=== PATIENT | female | born 1955 | race Caucasian/White ===

== ENCOUNTER → 2016-05-12 | Outpatient (CLI) | payer BC ==
[~2016-05-12] MED LIST: ATV5 PO; MULT-506 PO; NAPR1TAB9 PO; PRLSR20 PO
--- NOTE | 2016-05-12 15:22 | MAMMOGRAPHY REPORT ---
BILATERAL DIGITAL SCREENING MAMMOGRAM TOMOSYNTHESIS WITH CAD: 05/12/2016 CLINICAL HISTORY: Routine screening. Patient has no complaints. TECHNIQUE: Breast tomosynthesis in addition to standard 2D mammography was performed. Current study was also evaluated with a Computer Aided Detection (CAD) system. COMPARISON: Comparison is made to exams dated: 04/28/2015 mammogram, 04/16/2014 mammogram, 01/09/2013 mammogram, 01/03/2013 mammogram, 12/21/2010 mammogram, and 12/29/2011 mammogram - [facility]. BREAST COMPOSITION: There are scattered areas of fibroglandular density in both breasts. FINDINGS: No suspicious masses, calcifications, or areas of architectural distortion are noted in e ither breast. There has been no significant interval change compared to prior exams. IMPRESSION: ACR BI-RADS CATEGORY 1: NEGATIVE There is no mammographic evidence of malignancy. A 1 year screening mammogram is recommended. The p atient will receive written notification of the results. Approximately 10% of breast cancers are not detected with mammography. A negative mammographic repor t should not delay biopsy if a clinically suggestive mass is present. Venessa Ramírez M.D. ah/:05/12/2016 14:51:51 [employer] Past[employer] Cook: Nancy ALVAREZ(Yasir)(Christiana)([place]), [facility] letter sent: Normal 1/2 BI-RADS Code: ACR BI-RADS Category 1: Negative
== END | disposition home or self-care (01) ==
LOC: C.MAMM 12:13
PROVIDERS: ATTEND Obstetrics & Gynecology
DX: Z12.31 Encounter for screening mammogram for malignant neoplasm of breast (principal)

== ENCOUNTER → 2016-05-27 | Outpatient (CLI) | payer BC ==
[2016-05-27 13:27] LABS: BASO % 0.4 %; BASO ABS # 0.02 K/uL (0-0.2); COMPLETE YES; EOS % 2.8 %; HEMATOCRIT 39.5 % (37-47); LYMPH % 39.3 %; LYMPH ABS # 1.81 K/uL (1.2-3.4); MEAN CELL VOLUME 90.4 fL (80-100); MEAN CORPUSCULAR HEMOGLOBIN 30.4 pg (25-34); MEAN CORPUSCULAR HGB CONC 33.7 g/dl (32-36); MEAN PLATELET VOLUME 10.8 fL (7.4-10.4); MONO % 6.3 %; NEUT % 51.2 %; PLATELET COUNT 244 K/uL (130-400); RED BLOOD COUNT 4.37 M/uL (4.2-5.4)
== END | disposition home or self-care (01) ==
LOC: C.LABBC 12:11
PROVIDERS: ATTEND Internal Medicine Geriatric Medicine
DX: R05 Cough (principal)

== ENCOUNTER → 2016-08-02 | Outpatient (CLI) | payer BC ==
--- NOTE | 2016-08-02 11:10 | DIAGNOSTIC IMAGING REPORT ---
TWO VIEW CHEST CLINICAL HISTORY: Cough and dyspnea. FINDINGS: PA and lateral chest radiographs are compared to study dated 01/06/2016 and correlated with chest CT dated 07/28/2010. The cardiomediastinal silhouette is unremarkable. Chronic interstitial thickening is similar to previous. No airspace consolidation, pleural effusion, or pneumothorax is seen. The skeletal structures are osteopenic. The bony thorax appears intact. Fusion hardware is noted in the lower cervical spine. IMPRESSION: No active disease in the chest. Electronically signed by: Kayden Olson M.D. 08/02/2016 11:09 AM Dictated Date/Time: 08/02/2016 11:08 AM
== END | disposition home or self-care (01) ==
LOC: C.RADBC 10:36
PROVIDERS: ATTEND Physician Assistant
DX: J45.901 Unspecified asthma with (acute) exacerbation (principal)

== ENCOUNTER → 2016-08-22 | Outpatient (CLI) | payer BC ==
[2016-08-22 12:42] LABS: BASO % 0.7 %; BASO ABS # 0.03 K/uL (0-0.2); COMPLETE YES; EOS % 2.4 %; HEMATOCRIT 41.3 % (37-47); IG% 0.2 %; LYMPH % 37.1 %; LYMPH ABS # 1.56 K/uL (1.2-3.4); MEAN CELL VOLUME 92.4 fL (80-100); MEAN CORPUSCULAR HEMOGLOBIN 30.6 pg (25-34); MEAN CORPUSCULAR HGB CONC 33.2 g/dl (32-36); MEAN PLATELET VOLUME 10.9 fL (7.4-10.4); MONO % 7.9 %; NEUT % 51.7 %; PLATELET COUNT 218 K/uL (130-400); RED BLOOD COUNT 4.47 M/uL (4.2-5.4)
[2016-08-22 13:24] LABS: ALT/SGPT 30 U/L (12-78); AST/SGOT 22 U/L (15-37); BLOOD UREA NITROGEN 21 mg/dl (7-18); BUN/CREATININE RATIO 29.7 (10-20); CALCIUM 9.2 mg/dl (8.5-10.1); CARBON DIOXIDE 28 mmol/L (21-32); CHLORIDE 107 mmol/L (98-107); CHOLESTEROL 214 mg/dl (0-200); CREATININE 0.69 mg/dl (0.60-1.20); GLUCOSE 82 mg/dl (70-99); POTASSIUM 3.7 mmol/L (3.5-5.1); SODIUM 143 mmol/L (136-145); TRIGLYCERIDES 201 mg/dl (0-150); VERY LOW DENSITY LIPOPROT CALC 40 mg/dl
[2016-08-22 13:28] LABS: CHOLESTEROL/HDL RATIO 4.8; HDL CHOLESTEROL 45 mg/dl; LDL CHOLESTEROL CALCULATED 129 mg/dl
== END | disposition home or self-care (01) ==
LOC: C.LAB1850 11:30
PROVIDERS: ATTEND Internal Medicine
DX: J45.909 Unspecified asthma, uncomplicated (principal); R53.83 Other fatigue; M81.0 Age-related osteoporosis without current pathological fracture; Z00.00 Encounter for general adult medical examination without abnormal findings

== ENCOUNTER → 2016-12-12 | Outpatient (CLI) | payer BC ==
[2016-12-12 13:25] LABS: HEMATOCRIT 39.9 % (37-47); MEAN CELL VOLUME 91.7 fL (80-100); MEAN CORPUSCULAR HEMOGLOBIN 30.3 pg (25-34); MEAN CORPUSCULAR HGB CONC 33.1 g/dl (32-36); MEAN PLATELET VOLUME 11.4 fL (7.4-10.4); PLATELET COUNT 213 K/uL (130-400); RED BLOOD COUNT 4.35 M/uL (4.2-5.4); WHITE BLOOD COUNT 4.57 K/uL (4.8-10.8)
[2016-12-12 14:02] LABS: CHOLESTEROL/HDL RATIO 4.5; THYROID STIMULATING HORMONE 2.99 uIu/ml (0.300-4.500)
== END | disposition home or self-care (01) ==
LOC: C.LABBC 10:12
PROVIDERS: ATTEND Internal Medicine
DX: E78.5 Hyperlipidemia, unspecified (principal); D72.819 Decreased white blood cell count, unspecified; E55.9 Vitamin D deficiency, unspecified

== ENCOUNTER → 2017-02-20 | Outpatient (CLI) | payer BC | END | disposition home or self-care (01) | LOC: C.PAPS 18:16 | PROVIDERS: ATTEND Obstetrics & Gynecology | DX: Z01.419 Encounter for gynecological examination (general) (routine) without abnormal findings (principal); N95.2 Postmenopausal atrophic vaginitis ==

== ENCOUNTER → 2017-06-08 | Outpatient (CLI) | payer BC ==
--- NOTE | 2017-06-08 15:09 | MAMMOGRAPHY REPORT ---
BILATERAL DIGITAL SCREENING MAMMOGRAM TOMOSYNTHESIS WITH CAD: 06/08/2017 CLINICAL HISTORY: Routine screening. Patient has no complaints. TECHNIQUE: Breast tomosynthesis in addition to standard 2D mammography was performed. Current study was also evaluated with a Computer Aided Detection (CAD) system. COMPARISON: Comparison is made to exams dated: 05/12/2016 mammogram, 04/28/2015 mammogram, 04/16/2014 ma mmogram, 01/09/2013 mammogram, 01/03/2013 mammogram, and 12/29/2011 mammogram - [facility]. BREAST COMPOSITION: There are scattered areas of fibroglandular density in both breasts. FINDINGS: No suspicious masses, calcifications, or areas of architectural distortion are noted in ei ther breast. There has been no significant interval change compared to prior exams. IMPRESSION: ACR BI-RADS CATEGORY 1: NEGATIVE There is no mammographic evidence of malignancy. A 1 year screening mammogram is recommended. The pa tient will receive written notification of the results. Approximately 10% of breast cancers are not detected with mammography. A negative mammographic report should not delay biopsy if a clinically suggestive mass is present. Venessa Ramírez M.D. /:06/08/2017 14:11:18 [employer] Driver: Randee ALVAREZ(Yasir)(Christiana), [facility] letter sent: Normal 1/2 BI-RADS Code: ACR BI-RADS Category 1: Negative
== END | disposition home or self-care (01) ==
LOC: C.MAMM 13:32
PROVIDERS: ATTEND Obstetrics & Gynecology
DX: Z12.31 Encounter for screening mammogram for malignant neoplasm of breast (principal)

== ENCOUNTER → 2017-08-01 | Outpatient (CLI) | payer BC | END | disposition home or self-care (01) | LOC: C.LABBC 10:16 | PROVIDERS: ATTEND Obstetrics & Gynecology | DX: R30.0 Dysuria (principal) ==

== ENCOUNTER → 2017-10-16 | Outpatient (CLI) | payer BC | END | disposition home or self-care (01) | LOC: C.LABSPEC 16:47 | PROVIDERS: ATTEND Obstetrics & Gynecology | DX: N76.2 Acute vulvitis (principal) ==

== ENCOUNTER → 2017-10-28 | Outpatient (CLI) | payer BC ==
--- NOTE | 2017-10-28 10:40 | DIAGNOSTIC IMAGING REPORT ---
THORACIC SPINE 3 VIEWS CLINICAL HISTORY: Thoracic back pain. FINDINGS: AP, lateral, and swimmer's views of the thoracic spine are correlated with lateral chest x-ray dated 08/02/2016. The skeletal structures are osteopenic. There is no radiographic evidence of fracture or malalignment involving the thoracic spine. Small anterior osteophytes are seen throughout. Hyperkyphosis is observed. The transverse processes and pedicles are grossly intact as seen on the frontal view. Mild multilevel degenerative disc space narrowing is noted. Fusion hardware is seen in the lower cervical spine. The lung parenchyma is clear as visualized. IMPRESSION: 1. There is no acute bony abnormality seen involving the thoracic spine. 2. Osteopenia and mild degenerative change as above. Electronically signed by: Kayden Olson M.D. 10/28/2017 10:38 AM Dictated Date/Time: 10/28/2017 10:37 AM
== END | disposition home or self-care (01) ==
LOC: C.RAD1850 10:16
PROVIDERS: ATTEND Family Medicine
DX: M54.6 Pain in thoracic spine (principal); M85.88 Other specified disorders of bone density and structure, other site

== ENCOUNTER 2017-11-06 16:17 | Emergency (ER) | payer BC ==
[~2017-11-06] VITALS: Ht 154.9 cm; Wt 75.5 kg
[2017-11-06 16:26] VITALS: Ht 154.9 cm; Wt 75.5 kg
[2017-11-06] MEDS ORDERED: LIDODERM (LIDOCAINE) PATCH 5% TD STA (17:04)
[2017-11-06] MEDS ORDERED: NRN/100 PO (17:26)
[2017-11-06] MEDS ORDERED: LIDO1PAD2 TD (17:26)
[2017-11-06] MEDS ORDERED: OXYC-57 PO (17:26)
--- NOTE | 2017-11-06 17:28 | EMERGENCY ROOM VISIT NOTE ---
ED Visit Note First contact with patient: 16:46 CHIEF COMPLAINT: Thoracic back pain HISTORY OF PRESENT ILLNESS: This 62-year-old female patient presents to the emergency department, ambulatory, complaining of pain in the mid back which began 2 months ago. The pain was gradual in onset, is now constant and worse with movement. The patient states the pain has been consistent for the past 2 months. It occasionally gets better or worse throughout the day, however there has been no injury and no change recently. The patient recently saw her primary care provider who started her on prednisone. She was taking 40 mg of prednisone for 5 days without improvement in her symptoms. She has seen Dr. Rosales, and states she did have fusion of C6/C7. She has not seen Dr. Rosales recently, but states she was messaging with him earlier today. He advised her that if her pain was significantly worse that she should go to the emergency department to be evaluated. The patient states she feels that she needs an MRI and this has been mentioned by her primary care provider as well to further evaluate her pain. This has not been ordered outpatient. She thought that coming to the emergency department with speed up the process for the MRI. The patient notes the pain as sharp and a 9/10. The patient denies any loss of control of their bowel or bladder functions. There has been no extremity numbness or weakness, and no change in sensation. No nausea or vomiting or abdominal pain. No chest pain or shortness of breath. No recent fever or illness. No dysuria or increased urinary frequency. REVIEW OF SYSTEMS: A 10 system review of systems was performed with positives and pertinent negatives listed in the history of present illness. All other systems were reviewed and are negative. ALLERGIES: Sulfa, Benadryl, monosodium glutamate MEDICATIONS: Omeprazole, lorazepam, Aleve, multivitamin PMH: Back pain, GERD SOCIAL HISTORY: The patient lives locally with family. She denies drug, alcohol, tobacco use. PHYSICAL EXAM: VITALS: Vitals are noted on the nurse's note and reviewed by myself. Vital signs stable. GENERAL: This is a 62-year-old white female, in no acute distress, nondiaphoretic, well-developed well-nourished. SKIN: The skin was without rashes, erythema, edema, or bruising. Capillary refill less than 2 seconds. NECK: Supple without nuchal rigidity. No cervical spine tenderness. No paraspinous muscle tenderness. HEART: Regular rate and rhythm without murmurs gallops or rubs. LUNGS: Clear to auscultation bilaterally without wheezes, rales or rhonchi. ABDOMEN: Positive bowel sounds x 4. Normal tympanic percussion. Soft, nontender, without masses or organomegaly. Wheeler sign negative. MUSCULOSKELETAL: No chest wall tenderness to palpation. No muscle atrophy, erythema, or edema noted of the back. There is no tenderness over the lumbar spinous processes. There is no tenderness over the paraspinous muscles bilaterally. There is tenderness over the thoracic spine and paraspinous muscles. There are muscle spasms present. The patient is slow to move around with maximum tenderness with sitting hunched over. Negative straight leg raise test. NEURO: Patient was alert and oriented to person place and time. Normal sensation to light and sharp touch. Deep tendon reflexes 2+ in the lower extremities. Dorsalis pedis pulse 2+ bilaterally. Strength 5/5 and equal in the bilateral lower extremities. EMERGENCY DEPARTMENT COURSE: The patient was seen and evaluated as above. Previous medical records reviewed including recent thoracic spine x-ray performed within the past month. She is not exhibiting any emergent symptoms to warrant an MRI from the ER, as her pain has been stable and consistent for the past 2 months. There has been no new injury. There is been no fever or signs of abscess. The patient is not experiencing any numbness, tingling, or change in sensation. She has full mobility. I did recommend that the patient follow-up with her primary care provider as well as Dr. Rosales for further evaluation and possible outpatient MRI. I did offer to perform the test here in the emergency department, but did discuss with the patient that without emergent symptoms, it is possible that insurance would not cover the test. The patient states she does not feel that she needs to have the test performed here in the emergency department, and would like to follow-up with her primary care provider to schedule it outpatient. I do feel that this is reasonable, again given no obvious emergent symptoms at this time. I gave the patient very strict return precautions. She was given a Lidoderm patch here in the emergency department. I discussed with her starting gabapentin and a short course of pain medication until she is able to follow-up with her PCP. She was agreeable to trying these medications. All questions answered to patient's satisfaction prior to discharge. Discharge instructions reviewed, the patient was discharged home in good condition. PDMP consulted and no suspicious findings noted. I attest that I have personally reviewed the patient's current medication list. Blood Pressure Screening: Patient was found to have a slightly elevated blood pressure due to circumstances. I do not believe that the patient requires hypertension monitoring. Etiologies such as lumbago, chronic thoracic back pain, sciatica, cauda equina, epidural abscess, osteomyelitis, fracture, aortic disease, metastatic disease, infection, renal colic, gastrointestinal, PE, cardiac etiology, pneumonia, as well as others were entertained. DIAGNOSIS: Chronic thoracic back pain The chart was completed utilizing [employer] voice recognition software. Grammatical errors, random word insertions, pronoun errors, and incomplete sentences are an occasional consequence of this system due to software limitations, ambient noise, and hardware issues. Any formal questions or concerns about the content, text, or information contained within the body of this dictation should be directly addressed to the provider for clarification. Current/Historical Medications Scheduled Gabapentin (Neurontin), 1 CAP PO TID Lorazepam (Ativan *), 0.5-1 MG PO HS PRN Multivitamin (Multivitamin), 1 TAB PO DAILY Naproxen (Aleve), 220 MG PO DAILY Omeprazole (Prilosec), 20 MG PO DAILY Scheduled PRN Lidocaine (Lidocaine), 1 PATCH TD QD PRN for Pain Oxycodone/Acetaminophen 5MG/325MG (Percocet 5MG/325MG), 1 TAB PO Q4H PRN for Pain Allergies Coded Allergies: Sulfa Drugs (Verified Allergy, Intermediate, 04/24/09) Cat Dander (Unverified Allergy, Mild, ASTHMA, 09/02/08) Diphenhydramine (Unverified Allergy, Mild, RASH, 04/24/09) Monosodium Glutamate (Unverified Allergy, Mild, RAPID HEART RATE, 04/24/09) Vital Signs Date Time Temp Pulse Resp B/P (MAP) Pulse Ox O2 Delivery O2 Flow Rate FiO2 11/06/17 17:32 37.1 85 21 158/99 96 11/06/17 16:26 37.1 82 18 164/101 97 Room Air Medications Administered Medications (Trade) Dose Ordered Sig/Jyothi Route Start Time Stop Time Status Last Admin Dose Admin Lidocaine (Lidoderm Patch 5%) 1 patch NOW STAT TD 11/06/17 17:04 11/06/17 17:08 DC 11/06/17 17:23 1 PATCH Departure Information Impression Primary Impression: Chronic thoracic back pain Dispostion Home / Self-Care Condition GOOD Prescriptions Oxycodone/Acetaminophen 5MG/325MG (PERCOCET 5MG/325MG) Tab 1 TAB PO Q4H Y for Pain, #6 TAB For Initial Treatment Prov: Naz Angulo PA-C 11/06/17 Gabapentin (Neurontin) 100 Mg Cap 1 CAP PO TID, #30 CAP Prov: Naz Angulo PA-C 11/06/17 Lidocaine (LIDOCAINE) 5 % Pad 1 PATCH TD QD Y for Pain, #30 PATCH Prov: Naz Angulo PA-C 11/06/17 Referrals Pro,Codey Bland M.D. (PCP) Patient Instructions ED Neck Back Pain [facility], [facility] Additional Instructions You have been treated in the Emergency Department for Back Pain. You have been prescribed Percocet to be used for pain control. This is a narcotic medication. You cannot drive or consume alcohol while on this medicine. This medicine should only be used for pain that cannot be controlled with lidp-ryw-echbatu pain medicines. Use the muscle relaxers you have at home to help with pain and spasms. Use the Lidoderm patches as prescribed to help with pain. No more than 1 patch in 24 hours. Patch must be removed after 12 hours. New patch may be applied 12 hours later. Use gabapentin up to 300 mg 3 times per day to help with nerve pain. Do recommend follow-up with your primary care provider and spine surgeon regarding ongoing use of this medication. For pain control, you can use the following liuj-aox-dzohrku medicines (if >12 yo): Ibuprofen(Motrin, Advil) may be used for fever or pain. Use 600mg every six hours as needed. Take with food. Avoid using more than 2400mg in a 24 hour period. Do not use 2400mg per day for more than three consecutive days without physician direction. Prolonged inappropriate use can lead to stomach upset or ulcers. (AND/OR) Acetaminophen(Tylenol) may be used for fever or pain. Use 1000mg every six hours as needed. Avoid using more than 3000mg in a 24 hour period. If this is an acute injury, ice can be applied to the area of pain for the first 3 days to help decrease pain and inflammation. After the first 3 days, a heating pad can be used over the area for continued soothing relief. You should schedule a follow-up appointment in 1-2 days with your Primary Care Provider/spine surgeon for further evaluation and treatment of your back pain. Return to the Emergency Department if your current symptoms worsen despite treatment course outlined above, or if you develop any of the following symptoms : intractable pain despite aforementioned treatment course, loss of control of your bowel or bladder, numbness or tingling in your groin or extremities, falling due to weakness, or development of a fever. Problem Qualifiers Primary Impression: Chronic thoracic back pain Back pain laterality: midline Qualified Codes: M54.6 - Pain in thoracic spine; G89.29 - Other chronic pain
[2017-11-06 17:32] VITALS: BP 158/99; PULSE 85; TEMP 37.1; O2SAT 96
== END 2017-11-06 17:33 | disposition home or self-care (01) ==
LOC: C.EDB 16:18 → C.EDD 17:33
DX: M54.6 Pain in thoracic spine (principal); G89.29 Other chronic pain; Z98.1 Arthrodesis status; K21.9 Gastro-esophageal reflux disease without esophagitis; Z79.899 Other long term (current) drug therapy; Z88.2 Allergy status to sulfonamides; Z88.8 Allergy status to other drugs, medicaments and biological substances

== ENCOUNTER → 2017-11-10 | Outpatient (CLI) | payer BC ==
[~2017-11-10] MED LIST changes: +LIDO1PAD2 TD; +NRN/100 PO; +OXYC-57 PO
--- NOTE | 2017-11-10 16:20 | DIAGNOSTIC IMAGING REPORT ---
MRI THORACIC SPINE WITHOUT CLINICAL HISTORY: M54.6 persistent midthoracic back pain PRIOR STUDIES: Conventional radiographic study dated 10/28/2017 TECHNIQUE: MR scanning of the thoracic spine was performed using multiple pulse sequences. No gadolinium was administered. FINDINGS: There are no suspicious areas of marrow replacement. No spinal cord lesions are visualized in this noncontrast study. No disc herniations are visualized. There is no spinal stenosis. No paraspinal masses are visualized. There are mild degenerative changes. Incidental note is made of bilateral renal cysts. IMPRESSION: No significant abnormality is seen in the MR scan of the thoracic spine. Electronically signed by: Beka Dumont M.D. 11/10/2017 4:18 PM Dictated Date/Time: 11/10/2017 4:14 PM
== END | disposition home or self-care (01) ==
LOC: C.MRIBC 15:17
PROVIDERS: ATTEND Internal Medicine
DX: M54.6 Pain in thoracic spine (principal)

== ENCOUNTER 2019-11-09 12:18 | Inpatient (IN) ==
[2019-11-09 13:03] LABS: Basophils # (auto) 0.02 K/uL (0-0.2); Basophils % (auto) 0.3 %; Eosinophils # (auto) 0.02 K/uL (0-0.5); Eosinophils % (auto) 0.3 %; Hematocrit (blood only) 44.3 % (37-47); Hemoglobin 14.6 g/dL (12.0-16.0); Lymphocytes # (auto) 1.57 K/uL (1.2-3.4); Lymphocytes % (auto) 22.5 %; Mean Corpuscular Hemoglobin 30.7 pg (25-34); Mean Corpuscular Volume 93.1 fL (80-100); Mean Platelet Volume 10.3 fL (7.4-10.4); Monocytes # (auto) 0.28 K/uL (0.11-0.59); Neutrophils # (auto) 5.08 K/uL (1.4-6.5); Neutrophils % (auto) 72.9 %; Platelet Count 273 K/uL (130-400); RDW Coefficient of Variation 12.3 % (11.5-14.5); RDW Standard Deviation 42.1 fL (36.4-46.3); Red Blood Count 4.76 M/uL (4.2-5.4); White Blood Count 6.97 K/uL (4.8-10.8)
[2019-11-09 13:09] LABS: Appearance Urine Clear (Clear); Bilirubin Urine Negative (Negative); Blood Urine Negative (Negative); Color Urine Yellow; Glucose Urine UA Negative (Negative); Ketones Urine Negative (Negative); Leukocyte Esterase Urine Negative (Negative); Nitrite Urine Negative (Negative); Protein Urine Negative (Negative); Specific Gravity Urine 1.019 (1.000-1.030); Urobilinogen Urine Negative (Negative); pH Urine 6.5 (4.5-7.5)
[2019-11-09 13:23] LABS: Alanine Aminotransferase 33 U/L (12-78); Albumin Level 4.4 gm/dl (3.4-5.0); Aspartate Aminotransferase 22 U/L (15-37); BUN Creatinine Ratio 28.3 (10-20); Blood Urea Nitrogen 21 mg/dl (7-18); Calcium 9.5 mg/dl (8.5-10.1); Carbon Dioxide 28 mmol/L (21-32); Chloride 105 mmol/L (98-107); Est GFR (African American) 96.9; Est GFR (Non-African American) 83.6; Glucose 111 mg/dl (70-99); Lipase 111 U/L (73-393); Potassium 3.7 mmol/L (3.5-5.1); Sodium 139 mmol/L (136-145)
[2019-11-09 13:26] LABS: Alkaline Phosphatase 120 U/L (45-117); Bilirubin,Total 0.3 mg/dl (0.2-1); Globulin 4.4 gm/dl (2.5-4.0); Total Protein 8.8 gm/dl (6.4-8.2)
[2019-11-09] MEDS ORDERED: ONDANSETRON INJ 2 MG/ML 2 ML VIAL IV STA ×2 (13:52→15:46)
[2019-11-09] MEDS ORDERED: HYDROmorphone INJ 0.5 MG/0.5 ML SYR IV PRN ×2 (13:52→19:42)
[2019-11-09] MEDS ORDERED: FAMOTIDINE 20MG IV PUSH 20 MG/5 ML SYR IV STA (13:53)
--- NOTE | 2019-11-09 13:59 | Emergency Department Note ---
Impression & Plan Acute upper abdominal pain, SBO (small bowel obstruction) ED Provider Note INFORMANT: Patient ED PROVIDER(S): Anthony Sandoval MD CHIEF COMPLAINT: Abdominal pain PLAN: Disposition: Admitted Condition: Good MEDICAL DECISION MAKING: Patient presented with acute up upper abdominal pain. She was treated with Dilaudid and Zofran. She also required Phenergan. She had CT ridging performed. Blood work was unremarkable. CT imaging was consistent with a small bowel obstruction. Patient was hydrated. NG tube was ordered. Consult with general surgery made. The patient was evaluated by Dr. Silva in the emergency department. He asked for her to be admitted to internal medicine. He held off on the NG tube placement after discussion with the patient. We did consult with Dr. Mota of the hospitalist service. Dr. Silva and Dr. Mota did discuss the case. The patient was admitted for further management. Triage Nursing notes reviewed and agree them. Prior medical records reviewed CT imaging in June of this year without evidence of bowel obstruction. Vital Signs: reviewed and remarkable for no significant abnormalities Differential diagnosis: PUD, pancreatitis, biliary pathology, Appendicitis, ovarian cyst, ovarian torsion, ectopic , TOA, PID, infections, diverticulitis, UTI, obstruction, mesenteric ischemia, aortic pathology, inflammatory bowel disease, renal colic, hernia, volvulus, constipation, as well as other pathologies. Diagnostics interpreted by me: ECG: Rate: 80 Rhythm:Normal sinus [place]:Normal QRS:Normal ST segements:No elevation or depression. Nonspecific ST. Other:No PACs or PVCs Cardiac Monitoring: Cardiac monitoring ordered by me: The patient was placed on continuous cardiac monitoring and observed. It revealed a normal sinus rhythm at 82 beats per minute without ectopy or evidence of dysrhythmia. Imaging studies: CT imaging of the abdomen pelvis is consistent with high-grade bowel obstruction. Possible closed-loop obstruction pattern. Consultation(s): General surgery Internal medicine HPI: The patient is a 64 year old female who presents to the Emergency Room with complaints of epigastric, intense sharp pains. This started this morning and is persistent. The patient also notes the following associated symptoms, chills. The patient has tried gaviscon unsuccessfully for relieving factors. Current pain is rated as 10/10. Pt denies LOC, headache, fevers, , diaphoresis, visual changes, neck pain, chest pain, breathing difficulties, nausea, vomiting, back pain, melena, hematochezia, urinary symptoms, numbness, weakness, lymphadenopathy, rash, or other complaints. ROS: See above HPI for pertinent positives & negatives. A total of 10 systems reviewed and were otherwise negative. PAST MEDICAL HISTORY:See Below pyeloplasty 9 weeks ago PAST SURGICAL HISTORY:See Below FAMILY HISTORY:See Below SOCIAL HISTORY:See Below HOME MEDICATIONS:See Below ALLERGIES:See Below VITALS:See Below PHYSICAL EXAMINATION: GENERAL: Awake, alert, uncomfortable appearing, in no distress HENT: Normocephalic, atraumatic. Oropharynx unremarkable. EYES: Normal conjunctiva. Sclera non-icteric. NECK: Inspection normal. Non-tender. Supple. No nuchal rigidity. FROM. No masses. RESPIRATORY: Clear to auscultation. No wheezes. No rales. Normal respiratory effort. CARDIAC: Normal rate. Normal rhythm. No murmurs. No rubs. Extremities warm and well perfused. Pulses equal. No JVD. GI: Soft, non-distended. Epigastric tenderness to palpation. No rebound or guarding. No masses. RECTAL: Deferred. MUSCULOSKELETAL: Atraumatic. Chest examination reveals no tenderness. The back is symmetrical on inspection without obvious abnormality. There is no CVA tenderness to palpation. No joint edema. LOWER EXTREMITIES: Calves are equal size bilaterally and non-tender. No edema. No discoloration. NEURO: Normal sensorium. No sensory or motor deficits noted. SKIN: No rash or jaundice noted. ED COURSE: Critical Care: None Anthony Sandoval MD Past Med/Surg History Medical History (Updated 11/09/19 @ 18:25 by Anthony Sandoval MD) Actinic keratosis Angioma of skin Arthropod bite Chest tightness Eustachian tube dysfunction H/O vulvovaginitis History of basal cell carcinoma Seborrheic keratosis Skin tag Surgical History H/O Spinal surgery C6-C7 SPINAL FUSION - HAS ALMOST COMPLETE ROM OF NECK H/O: section X2 History of anesthesia reaction HISTORY OF ASPIRATION WITH COLONOSCOPY, BUT ASSUMED IT WAS DUE TO THE PREP. NO ISSUES WITH THE LAST COLONOSCOPY, THEY SWITCHED THE PREP. DONE AT DR. SEWELL'S OFFICE. History of esophagogastroduodenoscopy (EGD) History of total abdominal hysterectomy PARTIAL S/P colonoscopy LAST 2015 S/P Mohs surgery for basal cell carcinoma FOREHEAD Family History Mother Breast cancer Colon cancer Hypertension Brother Prostate cancer Diabetes Colorectal cancer Sister Breast cancer Grandmother (Maternal) Breast cancer Father Myocardial infarction Uncle Diabetes Denies family history of Ovarian cancer Social History Smoking Status: Never smoker Second Hand Exposure: No; Hx Alcohol Use: Yes Hx Substance Use: No Preferred Language: Montenegrin Communication Ability: Effective 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 Required: No Beliefs That Will Affect Care: None marital status: Current Living Situation: Spouse current occupational status: employed 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 Feels Safe at Home: Yes Childhood Exposure to Second-Hand Smoke: Yes Dental Care, Regularly: Yes Physical Activity Frequency: 3-4 Times per Week Seatbelt Use: always Allergies Allergies Allergy/AdvReac Type Severity Reaction Status Date / Time Sulfa (Sulfonamide Allergy Intermediate Unknown Verified 09/23/19 09:09 Antibiotics) cat dander Allergy Mild ASTHMA Verified 09/23/19 09:09 diphenhydramine Allergy Mild RASH Verified 09/23/19 09:09 monosodium glutamate Allergy Mild RAPID Verified 09/23/19 09:09 HEART RATE amoxicillin [From Augmentin] Allergy Unknown Verified 09/23/19 09:09 ciprofloxacin [From Cipro] Allergy Unknown Verified 09/23/19 09:09 clavulanic acid Allergy Unknown Verified 09/23/19 09:09 [From Augmentin] doxycycline Allergy Unknown Verified 09/23/19 09:09 Home Meds Home Medications Medication Instructions Recorded Confirmed multivitamin 1 cap PO QAM 10/04/18 11/09/19 cetirizine 10 mg tablet 10 mg PO DAILY PRN tab 02/01/19 11/09/19 glucosamine-chondroitin 500 mg-400 1 cap PO BID cap 02/01/19 11/09/19 mg capsule lorazepam 1 mg tablet 0.5 mg PO HS tab 02/23/19 11/09/19 calcium carbonate 600 mg (1,500 1 tab PO DAILY 08/30/19 11/09/19 mg)-vitamin D3 400 unit tablet clobetasol 1 appln TOPICAL DIRECTED 11/09/19 11/09/19 Previous Rx's Medication Instructions Recorded promethazine 25 mg tablet 25 mg PO TID PRN #20 tab 07/01/19 levalbuterol tartrate 45 2 puffs INH Q4H PRN #15 gm 08/19/19 mcg/actuation aerosol inhaler mometasone-formoterol HFA 100 2 puffs INH BID #13 gm 08/19/19 mcg-5 mcg/actuation aerosol inhaler oxycodone-acetaminophen 5 mg-325 1 tab PO Q6H #10 tab 09/10/19 mg tablet nitrofurantoin macrocrystal 100 mg 100 mg PO BID 3 Days #6 cap 09/23/19 capsule Results & Data (ED) Vital Signs Vital Signs - 24 hr 11/09/19 12:33 11/09/19 13:02 11/09/19 13:05 Temperature 36.8 C Temperature Source Oral Pulse Rate 88 87 95 H Pulse Rate from SpO2 Sensor Respiratory Rate 17 Respiratory Effort / Characteristics Non-Labored Spontaneous Respiratory Depth Normal Respiratory Pattern Regular Blood Pressure 145/84 H Blood Pressure Mean 104 Pulse Oximetry 99 98 Oxygen Delivery Method Room Air Room Air Sepsis Recent Fever Within 48 Hours No Sepsis New/Unexplained Change in Mental Status No Sepsis Action Taken by Nursing No Action Required 11/09/19 13:07 11/09/19 13:30 11/09/19 13:37 Temperature Temperature Source Pulse Rate 86 76 Pulse Rate from SpO2 Sensor 88 78 Respiratory Rate 14 19 Respiratory Effort / Characteristics Respiratory Depth Respiratory Pattern Blood Pressure 167/105 H 175/69 H Blood Pressure Mean 124 115 Pulse Oximetry 98 98 Oxygen Delivery Method Sepsis Recent Fever Within 48 Hours Sepsis New/Unexplained Change in Mental Status Sepsis Action Taken by Nursing 11/09/19 14:14 11/09/19 14:15 11/09/19 16:10 Temperature Temperature Source Pulse Rate 88 89 Pulse Rate from SpO2 Sensor 82 87 Respiratory Rate 18 14 Respiratory Effort / Characteristics Respiratory Depth Respiratory Pattern Blood Pressure 161/86 H 161/86 H 160/90 H Blood Pressure Mean 119 111 113 Pulse Oximetry 98 98 96 Oxygen Delivery Method Room Air Sepsis Recent Fever Within 48 Hours Sepsis New/Unexplained Change in Mental Status Sepsis Action Taken by Nursing 11/09/19 17:56 Temperature Temperature Source Pulse Rate 85 Pulse Rate from SpO2 Sensor Respiratory Rate 18 Respiratory Effort / Characteristics Respiratory Depth Respiratory Pattern Blood Pressure 174/93 H Blood Pressure Mean 120 Pulse Oximetry 95 Oxygen Delivery Method Room Air Sepsis Recent Fever Within 48 Hours Sepsis New/Unexplained Change in Mental Status Sepsis Action Taken by Nursing Laboratory Data Result diagrams: 11/09/19 12:53 11/09/19 12:52 Lab Results 11/09/19 11/09/19 11/09/19 Range/Units 12:52 12:53 12:53 WBC 6.97 (4.8-10.8) K/uL RBC 4.76 (4.2-5.4) M/uL Hgb 14.6 (12.0-16.0) g/dL Hct 44.3 (37-47) % MCV 93.1 (80-100) fL MCH 30.7 (25-34) pg MCHC 33.0 (32-36) g/dL RDW Std Deviation 42.1 (36.4-46.3) fL RDW Coeff of Jana 12.3 (11.5-14.5) % Plt Count 273 (130-400) K/uL MPV 10.3 (7.4-10.4) fL Immature Gran % (Auto) 0.0 % Neut % (Auto) 72.9 % Lymph % (Auto) 22.5 % [place] % (Auto) 4.0 % Eos % (Auto) 0.3 % Baso % (Auto) 0.3 % Neut # (Auto) 5.08 (1.4-6.5) K/uL Lymph # (Auto) 1.57 (1.2-3.4) K/uL [place] # (Auto) 0.28 (0.11-0.59) K/uL Eos # (Auto) 0.02 (0-0.5) K/uL Baso # (Auto) 0.02 (0-0.2) K/uL Immature Gran # (Auto) 0.00 (0.00-0.02) K/uL Sodium 139 (136-145) mmol/L Potassium 3.7 (3.5-5.1) mmol/L Chloride 105 (98-107) mmol/L Carbon Dioxide 28 (21-32) mmol/L Anion Gap 6.0 (3-11) BUN 21 H (7-18) mg/dl Creatinine 0.75 (0.6-1.2) mg/dl Est Cr Clr Drug Dosing Not Reportable Est GFR ( Amer) 96.9 Est GFR (Non-Af Amer) 83.6 BUN/Creatinine Ratio 28.3 H (10-20) Glucose 111 H (70-99) mg/dl Lactate (0.4-2.0) mmol/L Calcium 9.5 (8.5-10.1) mg/dl Total Bilirubin 0.3 (0.2-1) mg/dl AST 22 (15-37) U/L ALT 33 (12-78) U/L Alkaline Phosphatase 120 H (45-117) U/L Total Protein 8.8 H (6.4-8.2) gm/dl Albumin 4.4 (3.4-5.0) gm/dl Globulin 4.4 H (2.5-4.0) gm/dl Albumin/Globulin Ratio 1.0 (0.9-2) Lipase 111 (73-393) U/L Urine Color Yellow Urine Appearance Clear (Clear) Urine pH 6.5 (4.5-7.5) Ur Specific Media 1.019 (1.000-1.030) Urine Protein Negative (Negative) Urine Glucose (UA) Negative (Negative) Urine Ketones Negative (Negative) Urine Blood Negative (Negative) Urine Nitrite Negative (Negative) Urine Bilirubin Negative (Negative) Urine Urobilinogen Negative (Negative) Ur Leukocyte Esterase Negative (Negative) 11/09/19 Range/Units 16:04 WBC (4.8-10.8) K/uL RBC (4.2-5.4) M/uL Hgb (12.0-16.0) g/dL Hct (37-47) % MCV (80-100) fL MCH (25-34) pg MCHC (32-36) g/dL RDW Std Deviation (36.4-46.3) fL RDW Coeff of Jana (11.5-14.5) % Plt Count (130-400) K/uL MPV (7.4-10.4) fL Immature Gran % (Auto) % Neut % (Auto) % Lymph % (Auto) % [place] % (Auto) % Eos % (Auto) % Baso % (Auto) % Neut # (Auto) (1.4-6.5) K/uL Lymph # (Auto) (1.2-3.4) K/uL [place] # (Auto) (0.11-0.59) K/uL Eos # (Auto) (0-0.5) K/uL Baso # (Auto) (0-0.2) K/uL Immature Gran # (Auto) (0.00-0.02) K/uL Sodium (136-145) mmol/L Potassium (3.5-5.1) mmol/L Chloride (98-107) mmol/L Carbon Dioxide (21-32) mmol/L Anion Gap (3-11) BUN (7-18) mg/dl Creatinine (0.6-1.2) mg/dl Est Cr Clr Drug Dosing Est GFR ( Amer) Est GFR (Non-Af Amer) BUN/Creatinine Ratio (10-20) Glucose (70-99) mg/dl Lactate 0.6 (0.4-2.0) mmol/L Calcium (8.5-10.1) mg/dl Total Bilirubin (0.2-1) mg/dl AST (15-37) U/L ALT (12-78) U/L Alkaline Phosphatase (45-117) U/L Total Protein (6.4-8.2) gm/dl Albumin (3.4-5.0) gm/dl Globulin (2.5-4.0) gm/dl Albumin/Globulin Ratio (0.9-2) Lipase (73-393) U/L Urine Color Urine Appearance (Clear) Urine pH (4.5-7.5) Ur Specific Media (1.000-1.030) Urine Protein (Negative) Urine Glucose (UA) (Negative) Urine Ketones (Negative) Urine Blood (Negative) Urine Nitrite (Negative) Urine Bilirubin (Negative) Urine Urobilinogen (Negative) Ur Leukocyte Esterase (Negative) Administered Medications Hydromorphone HCl (Hydromorphone Inj 0.5 Mg/0.5 Ml Syr) 0.5 mg IV Q15M PRN PRN Reason: Pain Stop: 11/23/19 13:51 Last Admin: 11/09/19 14:12 Dose: 0.5 mg Documented by: [id number] Sodium Chloride (Nss 1000ml) 1,000 mls @ 125 mls/hr IV .Q8H STA Stop: 11/09/19 23:46 Last Admin: 11/09/19 16:17 Dose: 125 mls/hr Documented by: [id number] Promethazine HCl (Phenergan) 12.5 mg in 50.5 mls @ 202 mls/hr IV NOW STA Stop: 11/09/19 18:29 Last Admin: 11/09/19 18:20 Dose: 202 mls/hr Documented by: [id number] Discontinued Medications Famotidine (Pepcid 20mg Iv Push) 20 mg in 5 mls @ 2.5 mls/min IV NOW STA Stop: 11/09/19 13:54 Last Admin: 11/09/19 14:12 Dose: 2.5 mls/min Documented by: [id number] Ondansetron HCl (Ondansetron Inj 2 Mg/Ml 2 Ml Vial) 4 mg IV NOW STA Stop: 11/09/19 13:53 Last Admin: 11/09/19 14:12 Dose: 4 mg Documented by: [id number] Ondansetron HCl (Ondansetron Inj 2 Mg/Ml 2 Ml Vial) 4 mg IV NOW STA Stop: 11/09/19 15:47 Last Admin: 11/09/19 16:17 Dose: 4 mg Documented by: [id number] Discharge Plan Visit Data Chief Complaint: Abdominal Pain Stated Complaint: ABD PAIN ED Provider: Anthony Sandoval Discharge Problem: Acute upper abdominal pain, SBO (small bowel obstruction) Forms Stand Alone Forms: [facility], [facility]–1983 Prescriptions Prescriptions: No Action promethazine 25 mg tablet 25 mg PO TID PRN (Reason: nausea and vomiting) Qty: 20 RF: 0 Dulera 100-5 mcg/actuation HFA aerosol inhaler 2 puffs INH BID Qty: 13 RF: 2 levalbuterol tartrate 45 mcg/actuation HFA aerosol inhaler 2 puffs INH Q4H PRN (Reason: shortness of breath or wheezing) Qty: 15 RF: 2 oxycodone-acetaminophen 5-325 mg tablet 1 tab PO Q6H Qty: 10 RF: 0 nitrofurantoin macrocrystal 100 mg capsule 100 mg PO BID 3 Days Qty: 6 RF: 0 multivitamin capsule 1 cap PO QAM RF: 0 cetirizine 10 mg tablet 10 mg PO DAILY PRN (Reason: allergy symptoms) RF: 0 glucosamine-chondroitin 500-400 mg capsule 1 cap PO BID RF: 0 calcium carbonate-vitamin D3 [Calcium 600 + D(3)] 600 mg(1,500mg) -400 unit tablet 1 tab PO DAILY RF: 0 lorazepam [Ativan] 1 mg tablet 0.5 mg PO HS RF: 0 clobetasol 0.05 % ointment 1 appln topical DIRECTED RF: 0
--- NOTE | 2019-11-09 14:42 | CT Scan Report ---
ABDOMEN AND PELVIS CT WITHOUT CONTRAST CT DOSE: 405.33 mGy.cm HISTORY: upper abd pain TECHNIQUE: Multiaxial CT images of the abdomen and pelvis were performed without contrast. A dose lo wering technique was utilized adhering to the principles of ALARA. COMPARISON STUDY: Abdomen and pelvis CT 07/01/2019. FINDINGS: The lung bases are clear. No pneumoperitoneum. No pneumatosis. No suspicious lytic are estevan tic osseous lesions. The unenhanced liver, gallbladder, pancreas, adrenal glands, and spleen are unre markable. Decrease in size in the left renal cyst. Stable right renal cysts. Mild left hydronephrosis has improved. No retroperitoneal lymphadenopathy. Normal caliber thoracic aorta. The bladder is unre markable. Prior hysterectomy. Trace pelvic free fluid. Suboptimal evaluation for bowel pathology due to the lack of intravenous and oral contrast. A few colonic diverticula. No evidence for diverticulit is. No bowel wall thickening. Normal appendix. Multiple loops of dilated and fluid-filled small bowel seen within the left side the abdomen. There is a distal transition point seen within the left side the abdomen on image 157. Questionable proximal transition point within the left upper quadrant on im age 85. Therefore, this raises the possibility of a closed loop obstruction. There is mild edema surr ounding these distended loops of small bowel. IMPRESSION: 1. A a few loops of distended and fluid-filled small bowel within the left side the abdomen with monique cent mesenteric edema consistent with a high-grade small bowel obstruction. There is suggestion of geronimo th proximal and distal transition points raising the possibility of a closed loop obstruction. Surgic al consultation recommended. 2. Decrease in size/resolution of the left renal cyst with improvement in the mild left hydronephrosi s. ACT 112: Negative or not required by law. Electronically signed by: Qamar Abraham M.D. 11/09/2019 2:40 PM
[2019-11-09] MEDS ORDERED: SODIUM CHLORIDE 0.9% 1000ML 1,000 ML IV STA (15:47)
--- NOTE | 2019-11-09 17:42 | Surgery Consultation ---
Date of Consultation November 09, 2019 Assessment & Plan (1) Small bowel obstruction: -SBO likely related to adhesions from multiple prior surgeries -will employ conservative measures for the present time: -NPO and hydration via IVF -if N/V ensue will recommend NGT -discussed with hospitalist who will be admitting Supervising Physician Co-Signing Physician Notes Patient seen and examined, labs and imaging reviewed, agree with above. 64-year-old female with history of recent pyeloplasty of the left kidney, robotic converted to open due to adhesions at [facility] 9 weeks ago presented to the emergency department with onset of left upper quadrant abdominal pain. This started about 9 AM this morning. The pain was initially very intense. She did have nausea but no vomiting. She does have a history of IBS and has had similar symptoms in the past but this She did have a bowel movement and passed gas today. was very different. On exam she is afebrile with stable vital signs. She appears comfortable. Her abdomen is soft, minimally distended, mostly nontender. She has slight discomfort in the left upper quadrant. She has a left upper quadrant subcostal incision along with a infraumbilical midline i ncision that are well-healed. Her labs are unremarkable. Her CT scan reveals some dilated small bowel with a transition point indicating a moderate to high- grade small bowel obstruction. There is also question of a transition point in the a fair bowel which could indicate a closed-loop obstruction. There is no evidence of pneumatosis. Small bowel obstruction likely related to adhesions. Clinically this does not appear to be a closed-loop obstruction, and therefore we will proceed with nonoperative management. We will hold off and on NG tube if she has not had any vomiting her stomach is not dilated on CT. Recommend admission to medicine Hold NG tube for now, if she begins to vomit 1 may be placed KUB in the morning N.p.o., IV fluids Consider contrasted study in the next few days failure to resolve The diagnosis, treatment options, and plan of care were discussed the patient, all questions were answered, the patient expressed understanding agrees the plan of care as stated History of Present Illness History of Present Illness 64 year old female presented to ED due to sharp abdominal pain located in upper abdomen. No radiation. No palliative or provocative noted. She has mild nausea but no emesis. She notes a hx. of x 2, a hysterectomy, and a urologic surgery involving her left kidney. The noted urologic surgery was 9 weeks ago. In the ED, CT of abdomen showed concern for closed loop SBO. Lactate and WBC were not elevated. She was not hypotensive, febrile, or tachycardic. Allergies Allergy/AdvReac Type Severity Reaction Status Date / Time Sulfa (Sulfonamide Allergy Intermediate Unknown Verified 09/23/19 09:09 Antibiotics) cat dander Allergy Mild ASTHMA Verified 09/23/19 09:09 diphenhydramine Allergy Mild RASH Verified 09/23/19 09:09 monosodium glutamate Allergy Mild RAPID Verified 09/23/19 09:09 HEART RATE amoxicillin [From Augmentin] Allergy Unknown Verified 09/23/19 09:09 ciprofloxacin [From Cipro] Allergy Unknown Verified 09/23/19 09:09 clavulanic acid Allergy Unknown Verified 09/23/19 09:09 [From Augmentin] doxycycline Allergy Unknown Verified 09/23/19 09:09 Home Medications Home Medications Medication Instructions Recorded Confirmed Type multivitamin 1 cap PO QAM 10/04/18 11/09/19 History cetirizine 10 mg tablet 10 mg PO DAILY PRN tab 02/01/19 11/09/19 History glucosamine-chondroitin 500 mg-400 1 cap PO BID cap 02/01/19 11/09/19 History mg capsule lorazepam 1 mg tablet 0.5 mg PO HS tab 02/23/19 11/09/19 History promethazine 25 mg tablet 25 mg PO TID PRN #20 tab 07/01/19 11/09/19 Rx levalbuterol tartrate 45 2 puffs INH Q4H PRN #15 gm 08/19/19 11/09/19 Rx mcg/actuation aerosol inhaler mometasone-formoterol HFA 100 2 puffs INH BID #13 gm 08/19/19 11/09/19 Rx mcg-5 mcg/actuation aerosol inhaler calcium carbonate 600 mg (1,500 1 tab PO DAILY 08/30/19 11/09/19 History mg)-vitamin D3 400 unit tablet oxycodone-acetaminophen 5 mg-325 1 tab PO Q6H #10 tab 09/10/19 11/09/19 Rx mg tablet nitrofurantoin macrocrystal 100 mg 100 mg PO BID 3 Days #6 cap 09/23/19 11/09/19 Rx capsule clobetasol 1 appln TOPICAL DIRECTED 11/09/19 11/09/19 History Patient History Medical History (Updated 11/09/19 @ 17:36 by Marck Sow PA-C) Actinic keratosis Angioma of skin Arthropod bite Chest tightness Eustachian tube dysfunction H/O vulvovaginitis History of basal cell carcinoma Seborrheic keratosis Skin tag Surgical History H/O Spinal surgery C6-C7 SPINAL FUSION - HAS ALMOST COMPLETE ROM OF NECK H/O: section X2 History of anesthesia reaction HISTORY OF ASPIRATION WITH COLONOSCOPY, BUT ASSUMED IT WAS DUE TO THE PREP. NO ISSUES WITH THE LAST COLONOSCOPY, THEY SWITCHED THE PREP. DONE AT DR. SEWELL'S OFFICE. History of esophagogastroduodenoscopy (EGD) History of total abdominal hysterectomy PARTIAL S/P colonoscopy LAST 2015 S/P Mohs surgery for basal cell carcinoma FOREHEAD Family History Mother Breast cancer Colon cancer Hypertension Brother Prostate cancer Diabetes Colorectal cancer Sister Breast cancer Grandmother (Maternal) Breast cancer Father Myocardial infarction Uncle Diabetes Denies family history of Ovarian cancer Social History Smoking Status: Never smoker Second Hand Exposure: No; Hx Alcohol Use: Yes Hx Substance Use: No Preferred Language: Croatian Communication Ability: Effective Pre Billing Clinician Required: No Beliefs That Will Affect Care: None marital status: Current Living Situation: Spouse current occupational status: employed 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 Feels Safe at Home: Yes Childhood Exposure to Second-Hand Smoke: Yes Dental Care, Regularly: Yes Physical Activity Frequency: 3-4 Times per Week Seatbelt Use: always Review of Systems Constitutional: no fever Eyes: no diplopia Ear, Nose, Mouth, Throat: no ear pain Respiratory: no cough and no dyspnea Cardiovascular: no chest pain Gastrointestinal: + abdominal pain and + nausea; no vomiting Genitourinary: no dysuria Musculoskeletal: no back pain Integumentary: no rash Neurologic: no localized weakness Physical Exam Constitutional: well developed and well nourished; no acute distress Eyes: no conjunctival abnormality ENMT: Ears: no hearing impairment Neck: trachea midline Respiratory: normal respiratory effort, lungs clear to auscultation Cardiovascular: Rate/Rhythm: regular rate and regular rhythm Vessels: radial pulses present Gastrointestinal (Abdomen): Inspection/Auscultation: normal bowel sounds; abdomen not distended -multiple well healed incisions; no noted incisional hernias; no rebound tenderness or guarding Musculoskeletal: no calf pain Neurologic: moves all extremities Psychiatric: Orientation: alert and oriented x 3 Affect: + anxious affect Results & Data ([facility]) Vital Signs (Past 12 Hours) Vital Signs Temp Pulse Resp BP Pulse Ox 11/09/19 16:10 89 14 160/90 H 96 11/09/19 14:15 88 18 161/86 H 98 11/09/19 14:14 161/86 H 98 11/09/19 13:37 175/69 H 11/09/19 13:30 76 19 98 11/09/19 13:07 86 14 167/105 H 98 11/09/19 13:05 95 H 11/09/19 13:02 87 98 11/09/19 12:33 36.8 C 88 17 145/84 H 99 PG Care Time/CCT Total # of Minutes Spent Total Time Spent with Patient: Total time spent is greater than 50% in c oordination of care (as documented) at patient's floor/unit and/or counseling patient: Coding Level of Care Code 86290 Inpt Consult Level 5 Diagnoses Small bowel obstruction K56.609
[2019-11-09] MEDS ORDERED: PROMETHAZINE 12.5 MG/50.5 ML BAG IV STA (18:15)
--- NOTE | 2019-11-09 19:07 | History & Physical Report ---
Date of Service November 09, 2019 Assessment & Plan (1) SBO (small bowel obstruction): Suspected due to adhesions from prior surgeries IV fluids with LR 125 ml/hr NPO Antiemetics with ondansetron and promethazine -if she continues to have nausea despite this recommend NG tube Pain relief with scheduled acetaminophen, switch Dilaudid to morphine (2) Chronic prescription benzodiazepine use: She is taking lorazepam at bedtime for many years. To avoid withdrawal will switch to IV Lorazepam 0.5 mg at bedtime as needed. Advised patient effect may be quicker and shorter acting. (3) DVT prophylaxis: Chemical prophylaxis deferred overnight pending surgical decision. SCDs Admission and Anticipated Discharge Date Admission Date: 11/09/2019 History of Present Illness Chief Complaint: Abdominal pain Primary Care Provider: Codey Keller MD Ceic Flores is a 64 year old female who presents to the ER with abdominal pain. Started this morning, sharp, cramping. Nausea, no vomiting. Last BM this morning was normal. Initial severity of pain 10/10. No radiation. Currently very mild. Tried taking Gaviscon without any relief. Progressively getting worse throughout the morning. 9 weeks ago at [facility], [place] she had pyeloplasty and cyst decortication due to large cyst and posteriorly and blood vessel anteriorly causing obstruction and hydronephrosis. Originally planned laparoscopically but had to be converted to open due to adhesions. Prior x2 c-sections and hysterectomy. Allergies Allergy/AdvReac Type Severity Reaction Status Date / Time Sulfa (Sulfonamide Allergy Intermediate Unknown Verified 09/23/19 09:09 Antibiotics) cat dander Allergy Mild ASTHMA Verified 09/23/19 09:09 diphenhydramine Allergy Mild RASH Verified 09/23/19 09:09 monosodium glutamate Allergy Mild RAPID Verified 09/23/19 09:09 HEART RATE amoxicillin [From Augmentin] Allergy Unknown Verified 09/23/19 09:09 ciprofloxacin [From Cipro] Allergy Unknown Verified 09/23/19 09:09 clavulanic acid Allergy Unknown Verified 09/23/19 09:09 [From Augmentin] doxycycline Allergy Unknown Verified 09/23/19 09:09 Home Medications Home Medications Medication Instructions Recorded Confirmed Type multivitamin 1 cap PO QAM 10/04/18 11/09/19 History cetirizine 10 mg tablet 10 mg PO DAILY PRN tab 02/01/19 11/09/19 History glucosamine-chondroitin 500 mg-400 1 cap PO BID cap 02/01/19 11/09/19 History mg capsule lorazepam 1 mg tablet 0.5 mg PO HS tab 02/23/19 11/09/19 History promethazine 25 mg tablet 25 mg PO TID PRN #20 tab 07/01/19 11/09/19 Rx levalbuterol tartrate 45 2 puffs INH Q4H PRN #15 gm 08/19/19 11/09/19 Rx mcg/actuation aerosol inhaler mometasone-formoterol HFA 100 2 puffs INH BID #13 gm 08/19/19 11/09/19 Rx mcg-5 mcg/actuation aerosol inhaler calcium carbonate 600 mg (1,500 1 tab PO DAILY 08/30/19 11/09/19 History mg)-vitamin D3 400 unit tablet oxycodone-acetaminophen 5 mg-325 1 tab PO Q6H #10 tab 09/10/19 11/09/19 Rx mg tablet nitrofurantoin macrocrystal 100 mg 100 mg PO BID 3 Days #6 cap 09/23/19 11/09/19 Rx capsule clobetasol 1 appln TOPICAL DIRECTED 11/09/19 11/09/19 History Past Med/Surg History Medical History (Updated 11/10/19 @ 15:18 by Gama Mota MD) Actinic keratosis Angioma of skin Arthropod bite Chest tightness Eustachian tube dysfunction H/O vulvovaginitis History of basal cell carcinoma Seborrheic keratosis Skin tag Surgical History H/O Spinal surgery C6-C7 SPINAL FUSION - HAS ALMOST COMPLETE ROM OF NECK H/O: section X2 History of anesthesia reaction HISTORY OF ASPIRATION WITH COLONOSCOPY, BUT ASSUMED IT WAS DUE TO THE PREP. NO ISSUES WITH THE LAST COLONOSCOPY, THEY SWITCHED THE PREP. DONE AT DR. SEWELL'S OFFICE. 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 Machine Operator Required: No Beliefs That Will Affect Care: None marital status: Current Living Situation: Spouse current occupational status: employed 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 Feels Safe at Home: Yes Childhood Exposure to Second-Hand Smoke: Yes Dental Care, Regularly: Yes Physical Activity Frequency: 3-4 Times per Week Seatbelt Use: always Review of Systems Review of Systems: All systems reviewed & are unremarkable except as noted in HPI & below Physical Exam Constitutional: WD/WN, vitals as above Eyes: + anicteric sclerae; normal pupil size ENMT: external ear and nose normal, oropharynx normal Neck: trachea midline, no thyromegaly Respiratory: normal respiratory effort, lungs clear to auscultation Cardiovascular: RRR, no murmur, no edema Gastrointestinal (Abdomen): Inspection/Auscultation: abdomen normal to inspection and normal bowel sounds; abdomen not distended Percussion/Palpation: + abdomen tender (generalized) and abdomen soft; no guarding and abdomen not rigid Musculoskeletal: no cyanosis or clubbing, extremities motor strength 5/5 Skin: no rashes, warm and dry Neurologic: moves all extremities and awake; no focal motor deficits and not confused Psychiatric: A+Ox3, euthymic affect Genitourinary: no CVA tenderness Results & Data Results & Data ([facility]) Vital Signs (Past 12 Hours) Vital Signs Temp Pulse Resp BP Pulse Ox 11/09/19 17:56 85 18 174/93 H 95 11/09/19 16:10 89 14 160/90 H 96 11/09/19 14:15 88 18 161/86 H 98 11/09/19 14:14 161/86 H 98 11/09/19 13:37 175/69 H 11/09/19 13:30 76 19 98 11/09/19 13:07 86 14 167/105 H 98 11/09/19 13:05 95 H 11/09/19 13:02 87 98 11/09/19 12:33 36.8 C 88 17 145/84 H 99 Diagnostic Findings ABDOMEN AND PELVIS CT WITHOUT CONTRAST IMPRESSION: 1. A a few loops of distended and fluid-filled small bowel within the left side the abdomen with adjacent mesenteric edema consistent with a high-grade small bowel obstruction. There is suggestion of both proximal and distal transition points raising the possibility of a closed loop obstruction. Surgical consultation recommended. 2. Decrease in size/resolution of the left renal cyst with improvement in the mild left hydronephrosis. ECG Indication: chest pain Rate (beats per minute): 80 Rhythm: normal sinus Findings: no acute ischemic change Comparison ECG Date: from (July 19, 2019) Change: no significant change Code Status & VTE Plan Code Status Full - as discussed with the patient and her VTE Prophylaxis Plan VTE Prophylaxis will be ordered: Yes Reason for no VTE drug order: Treatment not indicated PG Care Time/CCT Total # of Minutes Spent Total Time Spent with Patient: Total time spent is greater than 50% in coordination of care (as documented) at patient's floor/unit and/or counseling patient: Coding Level of Care Code 27914 Initial Inpt Care Lvl 2 Diagnoses SBO (small bowel obstruction) K56.609 Chronic prescription benzodiazepine use Z79.899 DVT prophylaxis Z29.9
[2019-11-09] MEDS ORDERED: LEVALBUTEROL TARTRATE 15 GM HFA.AER.AD INH PRN (19:42)
[2019-11-09] MEDS ORDERED: ACETAMINOPHEN 1,000 MG/100 ML VIAL IV PRN (19:42)
[2019-11-09] MEDS: ONDANSETRON INJ 2 MG/ML 2 ML VIAL IV PRN ×2 (19:54→23:27)
[2019-11-09] MEDS: LACTATED RINGER'S 1,000 ML IV SCH (20:22)
[2019-11-09] MEDS: CLOBETASOL PROPIONATE 0.05% OINT 15 GM TUBE EXT SCH ×2 (20:57→21:07)
[2019-11-09] MEDS: ACETAMINOPHEN 1,000 MG/100 ML VIAL IV SCH (21:11)
[2019-11-09] MEDS: LORazepam 0.5 MG/1 ML VIAL IV PRN (22:18)
[2019-11-09] MEDS: MoRPHine SULFATE 2 MG/ML CARP IV PRN (23:22)
[2019-11-10] MEDS: PROMETHAZINE HCL 6.25 MG in SODIUM CHLORIDE 0.9% 50 ML IV PRN ×3 (01:43→23:44)
[2019-11-10] MEDS ORDERED: LORazepam 1 MG/2 ML VIAL IV STA (01:48)
[2019-11-10] MEDS: LACTATED RINGER'S 1,000 ML IV SCH ×3 (04:09→19:30)
[2019-11-10] MEDS: MoRPHine SULFATE 2 MG/ML CARP IV PRN ×4 (04:10→22:17)
[2019-11-10] MEDS: ACETAMINOPHEN 1,000 MG/100 ML VIAL IV SCH ×3 (04:10→21:18)
[2019-11-10] MEDS: ONDANSETRON INJ 2 MG/ML 2 ML VIAL IV PRN ×4 (04:18→19:11)
[2019-11-10 06:29] LABS: Hematocrit (blood only) 35.4 % (37-47); Hemoglobin 11.6 g/dL (12.0-16.0); Mean Corpuscular Hemoglobin 31.1 pg (25-34); Mean Corpuscular Hgb Conc 32.8 g/dL (32-36); Mean Corpuscular Volume 94.9 fL (80-100); Mean Platelet Volume 10.4 fL (7.4-10.4); Platelet Count 225 K/uL (130-400); RDW Coefficient of Variation 12.5 % (11.5-14.5); Red Blood Count 3.73 M/uL (4.2-5.4); White Blood Count 6.21 K/uL (4.8-10.8)
[2019-11-10 06:34] LABS: BUN Creatinine Ratio 32.1 (10-20); Calcium 8.2 mg/dl (8.5-10.1); Creatinine Clr Calc Pharmacy 97.7 ml/min; Est GFR (African American) 116.2; Est GFR (Non-African American) 100.3; Potassium 3.6 mmol/L (3.5-5.1)
--- NOTE | 2019-11-10 07:43 | Surgery Progress Note ---
Date of Service November 10, 2019 Assessment & Plan (1) Small bowel obstruction: -SBO likely related to adhesions from multiple prior surgeries -pt. is afebrile -no leukocytosis, JADEN, tachycardia, or hypotension noted -continue conservative measures as previously outlined: -NPO and hydration via IVF -NGT may be needed if N/V develop -will check KUB in am and consider a contrast study based on clinical status and symptoms in am Admission and Anticipated Discharge Date Admission Date: November 09, 2019 Supervising Physician Co-Signing Physician Notes Patient seen and examined, agree with above. 64-year-old female with small bowel obstruction. No significant change since yesterday, she has been requiring some morphine for discomfort, but her pain does not reach the level that it was that yesterday. No nausea or vomiting. No flatus. Abdomen is soft, minimally tender in the left upper quadrant, nondistended. Labs are norm al, KUB with persistent dilation of loop of small bowel in the left upper quadrant. We discussed her options to include surgery versus continued observation, and we both agreed for continued observation. Tomorrow we may request a contrasted study versus plan for the OR. Her and her did discuss the possibility of a second opinion versus transfer to a larger center, which I am not opposed to. Subjective Pt. notes she had not had any vomiting since admission, but note intermittent nausea. No BM or flatus. She has spells of pain similar to presenting symptoms that are alleviated with analgesics. Physical Exam Constitutional: well developed and well nourished; no acute distress Neck: trachea midline Respiratory: normal respiratory effort; no respiratory distress and no labored breathing Cardiovascular: Rate/Rhythm: regular rate and regular rhythm Gastrointestinal (Abdomen): Inspection/Auscultation: + hypoactive bowel sounds Percussion/Palpation: abdomen soft; abdomen nontender no rebound tenderness or guarding Results & Data ([facility]) Vital Signs (Past 12 Hours) Vital Signs Temp Pulse Resp BP Pulse Ox 11/10/19 06:57 36.8 C 72 16 116/71 93 11/09/19 23:25 37 C 81 16 146/74 H 94 PG Care Time/CCT Total # of Minutes Spent Total Time Spent with Patient: Total time spent is greater than 50% in coordination of care (as documented) at patient's floor/unit and/or counseling patient: Coding Level of Care Code 14457 Subseq Hosp Care Lvl 1 Diagnoses Small bowel obstruction K56.609
--- NOTE | 2019-11-10 07:59 | XRay Report ---
KUB CLINICAL HISTORY: Small bowel obstruction. COMPARISON STUDY: CT of the abdomen and pelvis November 09, 2019. FINDINGS: Mild dilatation of several small bowel loops has slightly increased since exam of October. Although sensitivity is diminished on this supine exam, there is no evidence for free air. Pe lvic calcifications reflect phleboliths. IMPRESSION: Slight increase in small bowel dilatation. The findings suggest a persistent small bowel obstruction. ACT 112: Negative or not required by law. Electronically signed by: Dimas Orozco M.D. 11/10/2019 7:58 AM
[2019-11-10] MEDS: CLOBETASOL PROPIONATE 0.05% OINT 15 GM TUBE EXT SCH ×2 (08:04→21:22)
[2019-11-10] MEDS: MULTIVITAMIN TAB PO SCH (08:04)
[2019-11-10] MEDS: FLUTICASONE/VILANTEROL 100/25MCG 14 PUFFS/INHALER INH SCH ×2 (08:04→21:22)
--- NOTE | 2019-11-10 13:30 | Hospitalist Progress Note ---
Date of Service November 10, 2019 Assessment & Plan (1) SBO (small bowel obstruction): CT showing a a few loops of distended and fluid-filled small bowel within the left side the abdomen with adjacent mesenteric edema consistent with a high- grade small bowel obstruction. There is suggestion of both proximal and distal transition points raising the possibility of a closed loop obstruction. Continue IVF and NPO as not passing gas yet. Surgery consulted - conservative measure for today. Will reassess tomorrow. May need to repeat CT with po and IV contrast. KUB ordered for tomorrow am. (2) Renal cyst: Patient is s/p pyeloplasty and cyst decortication 9 weeks ago in [place]. Had stent removed in September Per CT abd/pelvs: Decrease in size/resolution of the left renal cyst with improvement in the mild left hydronephrosis. (3) Asthma: Continue home inhalers (4) Abdominal bruit: No abnormal vasculature noted on CT but done without contrast. Last CT ab d/pelvis with contrast was in June which reports no aortic aneurysms. Patient does have family history of AAA with her father. Can re-evaluate with contrast if CT recommended tomorrow by surgery (5) DVT prophylaxis: Ambulating halls, SCDs when in bed, hold on chemoprophylaxis for possible intervention from surgery Admission and Anticipated Discharge Date Admission Date: November 09, 2019 Subjective Ms. Flores is feeling better pain henderson than when she came in. Still not passing gas, no bm, has some nausea but no vomiting. She is ambulating the halls without difficulty. is at bedside. ROS Constitutional: no chills, aches, sweats or fever Respiratory: no sob,cough, sputum, or wheezing Cardiac: no chest pain, palpitations, edema, orthopnea or lightheadedness GI: see HPI : no dysuria or hesitancy Extremities: no joint pain or weakness Skin: no rash All other systems reviewed and negative Physical Exam Physical Exam: General: no distress Eyes: normal inspection, PERLL Respiratory: chest non tender, clear to auscultation, normal breath sounds, no respiratory distress, no accessory muscle use Cardiac: regular rate and rhythm, no rub or gallop, no murmur, no edema, no jvd GI/: hypoactive bowel sounds, no abd pain or tenderness, soft, non distended, abdominal bruit Extremities: normal range of motion, normal strength, non tender Neuro/Psych: alert and oriented x 3, normal mood and affect Skin: normal color, dry Results & Data Results & Data ([facility]) Vital Signs (Past 12 Hours) Vital Signs Temp Pulse Resp BP Pulse Ox 11/10/19 06:57 36.8 C 72 16 116/71 93 PG Care Time/CCT Total # of Minutes Spent Total Time Spent with Patient: Total time spent is greater than 50% in coordination of care (as documented) at patient's floor/unit and/or counseling patient: Coding Level of Care Code 46265 Subseq Hosp Care Lvl 3 Diagnoses SBO (small bowel obstruction) K56.609 Renal cyst N28.1 Asthma J45.909 Abdominal bruit R09.89 DVT prophylaxis Z29.9
[2019-11-10] MEDS ORDERED: KETOROLAC TROMETHAMINE 15 MG/ML VIAL IV ONE (19:20)
[2019-11-10] MEDS: LORazepam 0.5 MG/1 ML VIAL IV PRN (23:44)
[2019-11-11] MEDS: MoRPHine SULFATE 2 MG/ML CARP IV PRN ×3 (02:35→19:56)
[2019-11-11] MEDS: ONDANSETRON INJ 2 MG/ML 2 ML VIAL IV PRN ×3 (02:35→23:58)
[2019-11-11] MEDS: LACTATED RINGER'S 1,000 ML IV SCH ×3 (03:34→22:16)
[2019-11-11] MEDS: ACETAMINOPHEN 1,000 MG/100 ML VIAL IV SCH ×3 (05:26→21:43)
[2019-11-11] MEDS: PROMETHAZINE HCL 6.25 MG in SODIUM CHLORIDE 0.9% 50 ML IV PRN ×2 (06:11→20:52)
[2019-11-11 06:27] LABS: Hematocrit (blood only) 36.9 % (37-47); Hemoglobin 11.6 g/dL (12.0-16.0); Mean Corpuscular Hemoglobin 30.1 pg (25-34); Mean Corpuscular Hgb Conc 31.4 g/dL (32-36); Mean Corpuscular Volume 95.6 fL (80-100); Mean Platelet Volume 10.2 fL (7.4-10.4); Platelet Count 216 K/uL (130-400); RDW Coefficient of Variation 12.6 % (11.5-14.5); RDW Standard Deviation 43.9 fL (36.4-46.3); Red Blood Count 3.86 M/uL (4.2-5.4); White Blood Count 6.14 K/uL (4.8-10.8)
[2019-11-11 07:11] LABS: BUN Creatinine Ratio 26.6 (10-20); Calcium 8.2 mg/dl (8.5-10.1); Creatinine Clr Calc Pharmacy 97.7 ml/min; Est GFR (African American) 116.2; Est GFR (Non-African American) 100.3; Potassium 3.4 mmol/L (3.5-5.1)
[2019-11-11 07:16] LABS: Bilirubin,Total 0.5 mg/dl (0.2-1); Globulin 3.1 gm/dl (2.5-4.0); Total Protein 6.1 gm/dl (6.4-8.2)
--- NOTE | 2019-11-11 07:50 | XRay Report ---
KUB CLINICAL HISTORY: Follow-up small bowel obstruction. FINDINGS: An AP, portable, supine abdominal radiograph is compared to study dated 11/10/2019 and corre lated with abdominal CT dated 11/09/2019. A thick-walled and mildly distended gas-filled loop of small bowel is noted in the left midabdomen. This measures up to 3.4 cm. Remaining bowel loops appear norm al in caliber. Fecal retention is again noted. No evidence of intraperitoneal free air is seen on thi s supine image. There are no abnormal abdominal calcifications. Small phleboliths are observed in the pelvis. The skeletal structures are osteopenic and appear intact. IMPRESSION: Findings remain concerning for a closed loop type small bowel obstruction when correlated with the 11/09/[address] Electronically signed by: Kayden Olson M.D. 11/11/2019 7:49 AM
[2019-11-11] MEDS: MULTIVITAMIN TAB PO SCH (08:26)
[2019-11-11] MEDS: CLOBETASOL PROPIONATE 0.05% OINT 15 GM TUBE EXT SCH ×2 (08:26→20:57)
--- NOTE | 2019-11-11 09:18 | Electrocardiogram Report ---
Test Reason : Blood Pressure : / mmHG Vent. Rate : 080 BPM Atrial Rate : 080 BPM P-R Int : 146 ms QRS Dur : 088 ms QT Int : 404 ms P-R-T Axes : 073 019 066 degrees QTc Int : 465 ms Poor data quality, interpretation may be adversely affected Normal sinus rhythm Abnormal ECG When compared with ECG of 19-JUL-2019 12:24, No significant change was found Confirmed by Mesfin Enciso ([id number]) on 11/11/2019 9:18:44 AM Referred By: ED Confirmed By:Mesfin Enciso
--- NOTE | 2019-11-11 11:11 | Surgery Progress Note ---
Date of Service November 11, 2019 Assessment & Plan (1) Small bowel obstruction: 64-year-old female with small bowel obstruction secondary to adhesions from recent robotic converted to open pyeloplasty performed at [facility] 9 weeks ago. She had increased pain yesterday but this is improved, and she is slightly less distended but not passing flatus. Again we had a long discussion regarding the options for further management. She is still not vomiting and is not overtly distended so I do not think an NG tube will provide much benefit. We agreed to proceed with a contrasted study she would like to avoid surgery if possible. We also discussed the possibility of transfer to a tertiary facility given her recent urologic surgery. Per their request I did review the imaging studies and case with Dr. Bass who agreed with plan as stated Plan for CT scan of the abdomen and pelvis with oral and IV contrast Continue n.p.o., IV fluids Further management based on imaging May consider transfer to a tertiary center Diagnosis, treatment options, and plan of care were discussed with the patient and her , all questions were answered, the patient and her expressed understanding and agreed to proceed with the plan of care as stated. I also reviewed the case with Dr. Bass who agreed with the current management strategy. Admission and Anticipated Discharge Date Admission Date: November 09, 2019 Subjective 64-year-old female admitted with small bowel obstruction. Yesterday she had some increasing pain in left upper quadrant and required the addition of Toradol. This morning she is feeling much better, just a little sore in the left hemiabdomen. Her nausea is slightly improved. She still denies flatus or bowel movements. She feels slightly less distended this morning. Physical Exam Constitutional: WD/WN, vitals as above Gastrointestinal (Abdomen): Inspection/Auscultation: + abdomen distended (Minimal distention) and + abdominal surgical incision (Healing well) Percussion/Palpation: + abdomen tender (Minimal left upper quadrant tenderness, no guarding or rebound) and abdomen soft; no guarding, no hepatosplenomegaly and no hernia Results & Data ([facility]) Vital Signs (Past 12 Hours) Vital Signs Temp Pulse Resp BP BP Pulse Ox 11/11/19 07:15 36.8 C 78 18 135/75 91 11/10/19 23:45 37.2 C 73 16 152/77 H 96 Laboratory Results Laboratory Results - last 24 hr 11/11/19 11/11/19 06:14 06:14 WBC 6.14 RBC 3.86 L Hgb 11.6 L Hct 36.9 L MCV 95.6 MCH 30.1 MCHC 31.4 L RDW Std Deviation 43.9 RDW Coeff of Jaan 12.6 Plt Count 216 MPV 10.2 Sodium 140 Potassium 3.4 L Chloride 107 Carbon Dioxide 25 Anion Gap 8.0 BUN 14 Creatinine 0.52 L Est Cr Clr Drug Dosing 97.7 Est GFR ( Amer) 116.2 Est GFR (Non-Af Amer) 100.3 BUN/Creatinine Ratio 26.6 H Glucose 68 L Calcium 8.2 L Total Bilirubin 0.5 AST 20 ALT 19 Alkaline Phosphatase 74 Total Protein 6.1 L D Albumin 3.0 L Globulin 3.1 Albumin/Globulin Ratio 1.0 Diagnostic Findings KUB CLINICAL HISTORY: Follow-up small bowel obstruction. FINDINGS: An AP, portable, supine abdominal radiograph is compared to study dated 11/10/2019 and correlated with abdominal CT dated 11/09/2019. A thick-walled and mildly distended gas-filled loop of small bowel is noted in the left midabdomen. This measures up to 3.4 cm. Remaining bowel loops appear normal in caliber. Fecal retention is again noted. No evidence of intraperitoneal free air is seen on this supine image. There are no abnormal abdominal calcifications. Small phleboliths are observed in the pelvis. The skeletal structures are osteopenic and appear intact. IMPRESSION: Findings remain concerning for a closed loop type small bowel obstruction when correlated with the 11/09/[address] PG Care Time/CCT Total # of Minutes Spent Total Time Spent with Patient: Total time spent is greater than 50% in coordination of care (as documented) at patient's floor/unit and/or counseling patient: Coding Level of Care Code 90401 Subseq Hosp Care Lvl 2 Diagnoses Small bowel obstruction K56.609
--- NOTE | 2019-11-11 12:16 | Hospitalist Progress Note ---
Date of Service November 11, 2019 Assessment & Plan (1) SBO (small bowel obstruction): Suspected due to adhesions from prior surgeries IVF NPO CT showing a a few loops of distended and fluid-filled small bowel within the left side the abdomen with adjacent mesenteric edema consistent with a high- grade small bowel obstruction. There is suggestion of both proximal and distal transition points raising the possibility of a closed loop obstruction. Surgery consulted - planning for conservative measures May need to repeat CT with po and IV contrast Repeat KUB stable (2) Chronic prescription benzodiazepine use: She is taking lorazepam at bedtime for many years. To avoid withdrawal will switch to IV Lorazepam 0.5 mg at bedtime as needed. Advised patient effect may be quicker and shorter acting. (3) DVT prophylaxis: Ambulating halls, SCDs when in bed, hold on chemoprophylaxis for possible intervention from surgery Renal cyst: Patient is s/p pyeloplasty and cyst decortication 9 weeks ago in [place]. Had stent removed in September Per CT abd/pelvs: Decrease in size/resolution of the left renal cyst with improvement in the mild left hydronephrosis. Asthma: Continue home inhalers Abdominal bruit: No abnormal vasculature noted on CT but done without contrast. Last CT abd/pelvis with contrast was in June which reports no aortic aneurysms. Patient does have family history of AAA with her father. Can re-evaluate with contrast if CT recommended tomorrow by surgery Admission and Anticipated Discharge Date Admission Date: November 09, 2019 Subjective Pt states she feels better overall today. Still with nausea, but improving. Still with pain, but much less than MEDICATION AIDE and managed with morphine. Bloating is also improved. Pt has not had emesis throughout entire episode. States she would like to take a shower. Still not passing gas. Review of Systems Review of Systems: Pertinent positives and negatives reviewed in HPI--all others negative Physical Exam Constitutional: WD/WN, vitals as above Eyes: normal visual mehta by confrontation and + anicteric sclerae Neck: normal visual inspection and trachea midline Respiratory: normal respiratory effort, lungs clear to auscultation Cardiovascular: Rate/Rhythm: regular rate and regular rhythm Gastrointestinal (Abdomen): Inspection/Auscultation: + abdomen distended Percussion/Palpation: + abdomen tender and abdomen soft Musculoskeletal: Head/Neck/Chest: normocephalic and head atraumatic negative for edema, peripheral pulses intact Skin: no rashes, warm and dry Neurologic: awake; not confused Speech / Cognition: normal speech Psychiatric: A+Ox3, euthymic affect Results & Data Results & Data ([facility]) Vital Signs (Past 12 Hours) Vital Signs Temp Pulse Resp BP Pulse Ox 11/11/19 07:15 36.8 C 78 18 135/75 91 PG Care Time/CCT Total # of Minutes Spent Total Time Spent with Patient: Total time spent is greater than 50% in coordination of care (as documented) at patient's floor/unit and/or counseling patient: Coding Level of Care Code 49080 Subseq Hosp Care Lvl 3 Diagnoses SBO (small bowel obstruction) K56.609 Chronic prescription benzodiazepine use Z79.899 DVT prophylaxis Z29.9
[2019-11-11] MEDS ORDERED: IOVERSOL 100ml IV ONE (14:49)
--- NOTE | 2019-11-11 15:06 | CT Scan Report ---
CT abd pelvis oral and IV con CLINICAL HISTORY: small bowel obstruction COMPARISON STUDY: November 09, 2019 TECHNIQUE: The patient was scanned finding administration of dilute oral contrast, and in a dynamic h elical fashion during intravenous administration of 94 cc of Optiray 320 A dose lowering technique w as utilized adhering to the principles of ALARA. CT DOSE: 503.30 mGy.cm FINDINGS: Lower chest: There is mild basilar atelectatic change Liver: The contrast-enhanced liver is normal in size, contour, and attenuation. There is no intrahepa tic biliary ductal dilatation. The hepatic veins and portal veins are patent. Gallbladder: Unremarkable. Spleen: Normal in size and attenuation. Pancreas: Unremarkable. Adrenal glands: Unremarkable. Kidneys: There are bilateral renal cysts. No solid renal masses are visualized. There is mild dilatat ion of the left renal collecting system. Bowel: There is mild residual proximal small bowel dilatation with decreasing bowel wall edema. Contr ast reaches the colon. The ileum is of normal caliber.. Peritoneum: There is a small amount of ascites present. No free air is visualized. Vasculature: The abdominal aorta is normal in course and caliber. Adenopathy: None. Pelvic viscera: The uterus appears surgically absent Skeletal structures: No destructive osseous lesions are seen. IMPRESSION: 1. Persistent but decreasing proximal small bowel dilatation with decreasing bowel wall edema. Contra st reaches the colon. The findings are indicative of an improving partial small bowel obstruction 2. No evidence of free intraperitoneal air 3. Persistent mild left-sided hydronephrosis 4. Increasing low volume ascites ACT 112: Negative or not required by law. Electronically signed by: Beka Dumont M.D. 11/11/2019 3:04 PM
[2019-11-11] MEDS: FLUTICASONE/VILANTEROL 100/25MCG 14 PUFFS/INHALER INH SCH (20:56)
[2019-11-11] MEDS: LORazepam 0.5 MG/1 ML VIAL IV PRN (22:17)
[2019-11-12] MEDS: ACETAMINOPHEN 1,000 MG/100 ML VIAL IV SCH ×2 (04:46→13:45)
[2019-11-12] MEDS: ONDANSETRON INJ 2 MG/ML 2 ML VIAL IV PRN ×2 (04:46→10:56)
[2019-11-12] MEDS: LACTATED RINGER'S 1,000 ML IV SCH ×3 (06:47→21:50)
[2019-11-12] MEDS: MULTIVITAMIN TAB PO SCH (07:28)
[2019-11-12] MEDS: PROMETHAZINE HCL 6.25 MG in SODIUM CHLORIDE 0.9% 50 ML IV PRN (08:54)
[2019-11-12 10:06] LABS: BUN Creatinine Ratio 12.8 (10-20); Calcium 8.8 mg/dl (8.5-10.1); Creatinine Clr Calc Pharmacy 101.6 ml/min; Est GFR (African American) 117.7; Est GFR (Non-African American) 101.6; Potassium 3.5 mmol/L (3.5-5.1)
--- NOTE | 2019-11-12 10:26 | XRay Report ---
KUB CLINICAL HISTORY: eval sbo COMPARISON STUDY: CT of the abdomen and pelvis and KUB November 11, 2019. FINDINGS: Oral contrast from prior CT is noted within the colon. A few loops of mildly dilated small bowel within the left upper quadrant are similar to CT of November 11, 2019. These have decreased since CT of November 09, 2019. A left abdominal surgical clip is noted. IMPRESSION: Mild small bowel dilatation, similar to CT of November 11, [address] of A ugust 2019. The findings suggest a persistent but improving small bowel obstruction. Contrast fro m CT has passed into the colon. ACT 112: Negative or not required by law. Electronically signed by: Dimas Orozco M.D. 11/12/2019 10:25 AM
--- NOTE | 2019-11-12 11:40 | Surgery Progress Note ---
Date of Service November 12, 2019 Assessment & Plan (1) SBO (small bowel obstruction): Patient here with SBO s/p robotic converted to open pyeloplasty [address] scan yesterday revealed persistent but decreasing proximal small bowel dilation with decreasing bowel wall edema with contrast reaching the colon KUB this AM showed persistent mild small bowel dilation with contrast from yesterdays CT reaching the colon; noting improving small bowel obstruction She is not passing as much flatus and no BM yet, also with complaints of nausea this AM Will continue current course conservative management for now Imaging studies are showing overall improvement and with contrast reaching the colon we are hopeful that the patient is turning the corner No plans for surgical intervention at this time Encourage ambulation Admission and Anticipated Discharge Date Admission Date: November 09, 2019 Supervising Physician Co-Signing Physician Notes Patient seen and examined, agree with above. Resolving sbo, ct yest with contrast into colon and improved bowel distention. Abd soft, nt, +bs. KUB with contrast into colon. Clear liquids today, possibly advance diet tomorrow. Subjective Patient states she did not have a great night dealing with a migraine. She got some Tylenol this AM and feels better from that standpoint. She says she feels a little bit worse than yesterday, some nausea and LUQ pain. She is not passing as much flatus, no BM yet. Overall feels fatigued from hospitalization. Physical Exam Physical Exam: awake/alert, NAD Gastrointestinal (Abdomen): Inspection/Auscultation: + abdomen distended (mild) and + abdominal surgical scar (healing well) Percussion/Palpation: + abdomen tender (some ttp LUQ) and abdomen soft Results & Data ([facility]) Vital Signs (Past 12 Hours) Vital Signs Temp Pulse Resp BP Pulse Ox 11/12/19 07:10 36.9 C 67 16 144/76 H 94 PG Care Time/CCT Total # of Minutes Spent Total Time Spent with Patient: Total time spent is greater than 50% in coordination of care (as documented) at patient's floor/unit and/or counseling patient: Coding Level of Care Code 22848 Subseq Hosp Care Lvl 1 Diagnoses SBO (small bowel obstruction) K56.609
[2019-11-12] MEDS ORDERED: ZOLPIDEM TARTRATE 5 MG TAB PO PRN (13:56)
--- NOTE | 2019-11-12 13:56 | Hospitalist Progress Note ---
Date of Service November 12, 2019 Assessment & Plan (1) SBO (small bowel obstruction): Suspected due to adhesions from prior surgeries IVF NPO CT showing a a few loops of distended and fluid-filled small bowel within the left side the abdomen with adjacent mesenteric edema consistent with a high- grade small bowel obstruction. There is suggestion of both proximal and distal transition points raising the possibility of a closed loop obstruction. Surgery consulted - planning for conservative measures Repeat CTAP on 11/10 with improvement noted Repeat KUB on 11/11 with improvement SBO persists, but improving from both a clincal and imaging standpoint (2) Chronic prescription benzodiazepine use: Pt states she has been taking ambien for sleep for many years. She was put on IV ativan on admission, but states this is not helping and would like ambien (3) DVT prophylaxis: Ambulating halls, SCDs when in bed, hold on chemoprophylaxis for possible intervention from surgery Renal cyst: Patient is s/p pyeloplasty and cyst decortication 9 weeks ago in [place]. Had stent removed in September Per CT abd/pelvs: Decrease in size/resolution of the left renal cyst with improvement in the mild left hydronephrosis. Asthma: Continue home inhalers Abdominal bruit: No abnormal vasculature noted on CT but done without contrast. Last CT abd/pelvis with contrast was in June which reports no aortic aneurysms. Patient does have family history of AAA with her father. Can re-evaluate with contrast if CT recommended tomorrow by surgery Admission and Anticipated Discharge Date Admission Date: November 09, 2019 Subjective Pt again notes feeling improved today. Still with occasional pains, but nothing like prior. Mild nausea, but also better and still without emesis. Distention is less. She has been passing gas today, but no bowel movement as of late AM. Pt denies fever, SOB, chest pain, LE pain or swelling. Review of Systems Review of Systems: Pertinent positives and negatives reviewed in HPI--all others negative Physical Exam Constitutional: WD/WN, vitals as above Eyes: normal visual mehta by confrontation and + anicteric sclerae Neck: normal visual inspection and trachea midline Respiratory: normal respiratory effort, lungs clear to auscultation Cardiovascular: Rate/Rhythm: regular rate and regular rhythm Gastrointestinal (Abdomen): Inspection/Auscultation: + abdomen distended (improving) Percussion/Palpation: + abdomen tender (minimal) and abdomen soft Musculoskeletal: Head/Neck/Chest: normocephalic and head atraumatic Skin: no rashes, warm and dry Neurologic: awake; not confused Speech / Cognition: normal speech Psychiatric: A+Ox3, euthymic affect Results & Data Results & Data ([facility]) Vital Signs (Past 12 Hours) Vital Signs Temp Pulse Resp BP Pulse Ox 11/12/19 07:10 36.9 C 67 16 144/76 H 94 PG Care Time/CCT Total # of Minutes Spent Total Time Spent with Patient: Total time spent is greater than 50% in coordination of care (as documented) at patient's floor/unit and/or counseling patient: Coding Level of Care Code 64681 Subseq Hosp Care Lvl 3 Diagnoses SBO (small bowel obstruction) K56.609 Chronic prescription benzodiazepine use Z79.899 DVT prophylaxis Z29.9
[2019-11-12] MEDS: FLUTICASONE/VILANTEROL 100/25MCG 14 PUFFS/INHALER INH SCH (21:46)
[2019-11-12] MEDS: LORazepam 0.5 MG/1 ML VIAL IV PRN (22:18)
[2019-11-13] MEDS ORDERED: ACETAMINOPHEN 325 MG TAB PO PRN (03:10)
[2019-11-13] MEDS: LACTATED RINGER'S 1,000 ML IV SCH (05:05)
[2019-11-13] MEDS: ONDANSETRON INJ 2 MG/ML 2 ML VIAL IV PRN (07:08)
[2019-11-13] MEDS: MULTIVITAMIN TAB PO SCH (09:07)
[2019-11-13] MEDS ORDERED: bisacodyL 10 MG SUPP PR STA (09:24)
[2019-11-13 10:42] LABS: BUN Creatinine Ratio 8.9 (10-20); Calcium 9.1 mg/dl (8.5-10.1); Creatinine Clr Calc Pharmacy 92.3 ml/min; Est GFR (African American) 114.1; Est GFR (Non-African American) 98.4; Magnesium 2.1 mg/dl (1.8-2.4); Potassium 3.3 mmol/L (3.5-5.1)
--- NOTE | 2019-11-13 10:48 | Surgery Progress Note ---
Date of Service November 13, 2019 Assessment & Plan (1) SBO (small bowel obstruction): Patient here with SBO Imaging studies yesterday revealed contrast moved to her large bowel and she was started on clear liquids of which she has tolerated well. We will advance to fulls for lunch, if she tolerates this can advance to low fiber She has not had a BM yet, we will order a suppository to help stimulate bowels, an enema is also okay if needed If she tolerates low fiber diet and has a BM today she will be okay to discharge to home today from our standpoint pt seen and examined with Dr. Silva Admission and Anticipated Discharge Date Admission Date: November 09, 2019 Supervising Physician Co-Signing Physician Notes Pnt s&e, agree with above. Resolving sbo, july d/c if tolerating diet. Low fiber diet for 3-4 weeks. Subjective Patient sitting up in chair. Says she is feeling well. Tolerating clear liquids. No BM yet, but feels some rumblings. Physical Exam Physical Exam: awake/alert, sitting up in chair Gastrointestinal (Abdomen): Percussion/Palpation: abdomen soft Results & Data ([facility]) Vital Signs (Past 12 Hours) Vital Signs Temp Pulse Resp BP BP Pulse Ox 11/13/19 07:25 36.6 C 71 16 143/75 H 95 11/12/19 23:52 36.8 C 81 16 152/77 H 94 PG Care Time/CCT Total # of Minutes Spent Total Time Spent with Patient: Total time spent is greater than 50% in coordination of care (as documented) at patient's floor/unit and/or counseling patient: Coding Level of Care Code 32489 Subseq Hosp Care Lvl 1 Diagnoses SBO (small bowel obstruction) K56.609
[2019-11-13] MEDS ORDERED: POTASSIUM CHLORIDE 20 MEQ TABCR PO STA (11:55)
[2019-11-13] MEDS ORDERED: NSS + 20MEQ KCL 20 MEQ/1,000 ML BAG IV SCH (12:00)
--- NOTE | 2019-11-13 18:31 | Discharge Summary ---
Date of Service date of admission - November 09, 2019 date of discharge - November 13, 2019 Admission HPI Per Admitting Provider Ceci Flores is a 64 year old female who presents to the ER with abdominal pain. Started this morning, sharp, cramping. Nausea, no vomiting. Last BM this morning was normal. Initial severity of pain 10/10. No radiation. Currently very mild. Tried taking Gaviscon without any relief. Progressively getting worse throughout the morning. 9 weeks ago at [facility] she had pyeloplasty and cyst decortication due to large cyst and posteriorly and blood vessel anteriorly causing obstruction and hydronephrosis. Originally planned laparoscopically but had to be converted to open due to adhesions. Prior x2 c-sections and hysterectomy. Principal Diagnosis Small bowel obstruction (SBO) Discharge Exam Constitutional well developed and well nourished; no acute distress and no altered mental status ENMT external ear and nose normal, oropharynx normal Respiratory normal respiratory effort, lungs clear to auscultation Cardiovascular Rate/Rhythm: regular rate and regular rhythm Heart Sounds: normal S1 and normal S2; no murmur Vessels: posterior tibial pulses present and dorsalis pedis pulses present; no JVD Extremities: no edema Gastrointestinal (Abdomen) normal bowel sounds, soft, nontender, no hepatosplenomegaly Psychiatric A+Ox3, euthymic affect Discharge Data Allergies Allergy/AdvReac Type Severity Reaction Status Date / Time Sulfa (Sulfonamide Allergy Intermediate Unknown Verified 11/19/19 11:43 Antibiotics) cat dander Allergy Mild ASTHMA Verified 11/19/19 11:43 diphenhydramine Allergy Mild RASH Verified 11/19/19 11:43 monosodium glutamate Allergy Mild RAPID Verified 11/19/19 11:43 HEART RATE amoxicillin [From Augmentin] Allergy Unknown Verified 11/19/19 11:43 ciprofloxacin [From Cipro] Allergy Unknown Verified 11/19/19 11:43 clavulanic acid Allergy Unknown Verified 11/19/19 11:43 [From Augmentin] doxycycline Allergy Unknown Verified 11/19/19 11:43 Consultations general surgery Ordered Studies 11/09/19 13:53 CT abd pelvis wo con Stat IMPRESSION: 1. A a few loops of distended and fluid-filled small bowel within the left side the abdomen with adjacent mesenteric edema consistent with a high-grade small bowel obstruction. There is suggestion of both proximal and distal transition points raising the possibility of a closed loop obstruction. Surgical consultation recommended. 2. Decrease in size/resolution of the left renal cyst with improvement in the mild left hydronephrosis. 11/11/19 13:45 CT abd pelvis oral and IV con Routine IMPRESSION: 1. Persistent but decreasing proximal small bowel dilatation with decreasing bowel wall edema. Contrast reaches the colon. The findings are indicative of an improving partial small bowel obstruction 2. No evidence of free intraperitoneal air 3. Persistent mild left-sided hydronephrosis 4. Increasing low volume ascites Hospital Course (1) SBO (small bowel obstruction): SBO was likely on the basis of adhesions. However, there was some suggestion of possible closed loop obstruction as well on initial CT. Either way the SBO was treated conservatively with bowel rest, IV fluids, anti- emetics, and time. She never required NG tube placement. Seen by general surgery who also advised conservative treatment. The patient finally began to pass flatus and clear liquid diet was started. She had a stool on day of discharge, and diet was further advanced to full liquids. Repeat CT abd/pelvis later in her stay showed radiographic improvement of the SBO with contrast reaching the colon. Patient was tolerating the full liquid diet on day of discharge without abdominal pain, nausea or emesis. She was counseled to continue advancing diet slowly at home and to follow a low fiber diet for 10 days. Warning symptoms/signs that would require re-visit to the ER were discussed in detail at discharge. (2) Renal cyst: LEFT. s/p pyeloplasty and cyst decortication at [facility] early summer 2019. mild residual left-sided hydronephrosis seen on CT studies this admission. creatinine while here 0.5. f/u with [facility] as needed/scheduled. (3) Asthma: no exacerbation while hospitalized. Total Time Total Time Spent Total Time Spent (In Minutes): 40 Total Time Includes: Examination of the Patient, Discharge Planning, Medication Reconciliation and Communication With Other Providers Discharge Plan Discharge Items Patient Disposition: Home - Self-Care Reason For Visit: SMALL BOWEL OBSTRUCTION Discharge Diagnosis: small bowel obstruction - resolved Activity: As commented below Activity Comment: gradually increase your activities over the next 5 days Non-emergency contact: Primary Care Provider and Surgeon Call non-emergency contact if: you have any medication questions, your symptoms worsen, your pain is not controlled, your pain is worsening and you have a fever Follow-up/Referrals: ProCodey MD [Primary Care Provider] - (see Dr Keller within 1 week ) Diet: Full liquid Addtl Attending Provider Instructions: You were treated for a small bowel obstruction with bowel rest, IV fluids, pain medication, etc. Your bowel obstruction ("blockage") resolved with the above measures and time. Your bowel obstruction was likely caused by adhesions (scar tissue). General surgery saw you in consult and managed your bowel obstruction. A repeat CAT scan of the abdomen along with x-rays showed improving bowel obstruction later in your stay. You were resumed on a clear liquid diet and this was advanced. You moved your bowels on 11/13/19. Recommendations - 1. please follow a full liquids diet for another 24 hours. Full liquids includes jello, amharic ice, chicken/beef broth, juice, gatorade, milk products (yogurt, cream-based soups, low-fat ice-cream, etc). 2. tomorrow, 11/14/19, you can gradually introduce low fiber foods into your diet. Avoid beans, excessive fruits/veggies, high-fiber cereals, fiber zuñiga pplements, etc. See "low fiber" handout. 3. follow a low-fiber diet for 10 days. 4. plenty of good hydration over the next few days. 5. avoid use of narcotic pain medication, if possible, as this will contribute to constipation and slowing of the GI tract motility. 6. return to [facility] if -- * you are not passing gas or stool * you have worsening abdominal pain or abdominal bloating * you have nausea and/or vomiting * you develop fever over 100.4 degrees * any other concerns 7. take potassium supplement for 3 days; you can start this tonight; this was sent to [facility] for you. Pending Studies at Discharge: No Stand-Alone Forms: My [facility], Smoking Cessation Medications and DC Order Prescriptions: Continued promethazine 25 mg tablet 25 mg PO TID PRN (Reason: nausea and vomiting) Qty: 20 RF: 0 levalbuterol tartrate 45 mcg/actuation HFA aerosol inhaler 2 puffs INH Q4H PRN (Reason: shortness of breath or wheezing) Qty: 15 RF: 2 multivitamin capsule 1 cap PO QAM RF: 0 cetirizine 10 mg tablet 10 mg PO DAILY PRN (Reason: allergy symptoms) RF: 0 glucosamine-chondroitin 500-400 mg capsule 1 cap PO BID RF: 0 lorazepam [Ativan] 1 mg tablet 0.5 mg PO HS RF: 0 clobetasol 0.05 % ointment 1 appln topical DIRECTED RF: 0 Discontinued oxycodone-acetaminophen 5-325 mg tablet 1 tab PO Q6H Qty: 10 RF: 0 No Action Dulera 100-5 mcg/actuation HFA aerosol inhaler 2 puffs INH BID PRNRF: 0 nitrofurantoin macrocrystal 100 mg capsule 100 mg PO BID PRNRF: 0 zolpidem 5 mg tablet 5 mg PO HS RF: 0 Discharge Orders: Discharge Order (Routine); Ordered 11/13/19 Ordered By: Gama Gasca/Other Patient Handouts: Low-Fiber Diet Admission Data Admit Date/Time: 11/09/19 18:29 Attending Provider: Gama Love Admit Provider: Gama Mota Primary Care Provider: Codey Keller Other Providers: Alejandro Silva Other Interventions: Discharge Summary Assessment (RN) Last Done: 11/13/19 18:25 Coding Level of Care Code D/C Day Management >30 mins Diagnoses SBO (small bowel obstruction) K56.609 Renal cyst N28.1 Asthma J45.909
== END 2019-11-13 18:39 | disposition home or self-care (01) | DRG 390 ==
LOC: ED 12:18 → SUATTDRO 18:29 → 3W 18:29

== ENCOUNTER 2021-10-13 23:26 | Inpatient (IN) ==
[2021-10-14] MEDS ORDERED: ONDANSETRON INJ 2 MG/ML 2 ML VIAL IV STA (00:01)
[2021-10-14] MEDS ORDERED: ACETAMINOPHEN 1,000 MG/100 ML VIAL IV STA (00:01)
[2021-10-14] MEDS ORDERED: MoRPHine SULFATE 2 MG/ML CARP IV STA (00:01)
[2021-10-14 00:27] LABS: Basophils # (auto) 0.06 K/uL (0-0.2); Basophils % (auto) 0.6 %; Eosinophils # (auto) 0.08 K/uL (0-0.50); Eosinophils % (auto) 0.8 %; Hematocrit (blood only) 41.4 % (34.1-44.9); Hemoglobin 13.9 g/dl (12.0-16.0); Immature Granulocytes # (auto) 0.02 K/uL (0.00-0.02); Immature Granulocytes % (auto) 0.2 %; Lymphocytes # (auto) 1.88 K/uL (1.2-3.4); Lymphocytes % (auto) 19.2 %; Mean Corpuscular Hemoglobin 31.3 pg (25.0-34.0); Mean Corpuscular Hgb Conc 33.6 g/dL (32.0-36.0); Mean Corpuscular Volume 93.2 fL (80.0-100.0); Mean Platelet Volume 10.3 fL (9.4-12.3); Monocytes # (auto) 0.71 K/uL (0.24-0.82); Monocytes % (auto) 7.2 %; Neutrophils # (auto) 7.05 K/uL (1.4-6.5); Platelet Count 271 K/uL (130-400); RDW Coefficient of Variation 12.2 % (11.5-14.5); RDW Standard Deviation 41.8 fL (36.4-46.3); Red Blood Count 4.44 M/uL (3.93-5.22)
[2021-10-14] MEDS: SODIUM CHLORIDE 0.9% 1000ML 1,000 ML IV SCH ×3 (00:36→08:36)
--- NOTE | 2021-10-14 00:38 | Emergency Department Note ---
History of Present Illness General Chief complaint: GI Assessment Stated complaint: ABDOMINAL PAIN. POSS BOWEL OBSTRUCTION Time Seen by Provider: 10/13/21 23:47 Source: patient Mode of arrival: ambulatory Limitations: no limitations History of Present Illness Provider complaint: Abdominal pain, nausea Onset (ago): hour(s) 3 Location: abdomen Radiation: non-radiation Maximum Pain Intensity: 10 Exacerbated By: + none Associated symptoms: + nausea/vomiting; no chest pain, no fever/chills or no shortness of breath Treatments prior to arrival: other This is a 66-year-old female presents emergency department due to concern for abdominal pain and mild accompanying nausea. Patient states symptoms began shortly after eating dinner this evening around 7:30 PM. She states she began developing some central abdominal pain and pressure. She states she does feel bloated and distended. No radiation of the pain into her back. She states she is mildly nauseated but has not vomited. She denies fevers or chills. Denies any recent change in bowel or bladder function. Denies any recent illness. No recent change in medications. Patient states she has had several prior abdominal surgeries and is concerned for an evolving bowel obstruction which she has had previously. Pt seen during a time of high acuity and national emergency pandemic while wearing PPE. Home Medications Medication Instructions Recorded Confirmed Type cetirizine 10 mg tablet 10 mg PO DAILY PRN allergy symptoms 02/01/19 10/14/21 History lorazepam 1 mg tablet (Ativan) 1 mg PO TID PRN Anxiety 02/23/19 10/14/21 History promethazine 25 mg tablet 25 mg PO TID PRN nausea and 12/04/20 10/14/21 Rx vomiting #20 tabs levalbuterol tartrate 45 2 inh inhalation Q4H PRN shortness 01/26/21 10/14/21 Rx mcg/actuation aerosol inhaler of breath or wheezing #15 grams multivitamin 1 tab PO DAILY 06/14/21 10/14/21 History hydrocortisone acetate 25 mg 25 mg [place] DAILY PRN hemorrhoids #12 07/12/21 10/14/21 Rx rectal suppository (Anusol-HC) ea nitrofurantoin macrocrystal 100 mg 100 mg PO BID PRN urinary symptoms 07/12/21 10/14/21 Rx capsule #30 caps oxycodone-acetaminophen 5 mg-325 1 - 2 tab PO Q4H PRN pain, initial 10/14/21 Rx mg tablet (Percocet) therapy, max 6 daily #15 tabs zolpidem 10 mg tablet 10 mg PO HS 10/14/21 10/14/21 History Allergies Allergy/AdvReac Type Severity Reaction Status Date / Time Sulfa (Sulfonamide Allergy Intermediate Hives Verified 10/14/21 00:11 Antibiotics) cat dander Allergy Mild ASTHMA Verified 10/14/21 00:11 diphenhydramine Allergy Mild RASH Verified 10/14/21 00:11 monosodium glutamate Allergy Mild RAPID Verified 10/14/21 00:11 HEART RATE amoxicillin [From Augmentin] Allergy Unknown Verified 10/14/21 00:11 ciprofloxacin [From Cipro] Allergy Unknown Verified 10/14/21 00:11 clavulanic acid Allergy Unknown Verified 10/14/21 00:11 [From Augmentin] doxycycline Allergy Unknown Verified 10/14/21 00:11 Past Med/Surg History Medical History Acid reflux Actinic keratosis Angioma of skin Arthropod bite Asthma Chest tightness Eustachian tube dysfunction H/O vulvovaginitis History of basal cell carcinoma SBO (small bowel obstruction) Seborrheic keratosis Skin tag Surgical History H/O Spinal surgery C6-C7 SPINAL FUSION - HAS ALMOST COMPLETE ROM OF NECK H/O: section X2 History of anesthesia reaction HISTORY OF ASPIRATION WITH COLONOSCOPY, BUT ASSUMED IT WAS DUE TO THE PREP. NO ISSUES WITH THE LAST COLONOSCOPY, THEY SWITCHED THE PREP. DONE AT DR. SEWELL'S OFFICE. History of esophagogastroduodenoscopy (EGD) History of pyloroplasty August 2019 History of total abdominal hysterectomy PARTIAL S/P colonoscopy LAST 2015 S/P Mohs surgery for basal cell carcinoma FOREHEAD Family History Mother Breast cancer Colon cancer Hypertension Cancer Brother Prostate cancer Diabetes Colorectal cancer Hypertension Cancer Heart disease Sister Breast cancer Cancer Allergies Grandmother (Maternal) Breast cancer Father Myocardial infarction Uncle Diabetes Denies family history of Ovarian cancer Hearing loss No family history of adverse response to anesthesia No family history of bleeding disorder Stroke Asthma Social History Smoking Status: Never smoker Second Hand Exposure: No; Hx Alcohol Use: No Hx Substance Use: No Preferred Language: Swazi Communication Ability: Effective Visual Impairment: No Limitations 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: No Beliefs That Will Affect Care: None marital status: Current Living Situation: Spouse current occupational status: employed 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 How many Children do You have: 2 Feels Safe at Home: Yes Childhood Exposure to Second-Hand Smoke: Yes Dental Care, Regularly: Yes Physical Activity Frequency: 3-4 Times per Week Seatbelt Use: always Sunscreen Use: Yes Assistive Devices: None Review of Systems A total of 10 systems reviewed and were otherwise negative All systems reviewed & are unremarkable except as noted in HPI & below Physical Exam Vital Signs Vital Signs - 24 hr 10/13/21 23:29 10/14/21 01:19 10/14/21 02:59 Temperature 36.5 C Temperature Source Temporal Artery Scan Pulse Rate 78 Pulse Rate [Apical] 73 73 Respiratory Rate 18 14 19 Respiratory Effort / Characteristics Non-Labored Spontaneous Non-Labored Spontaneous Respiratory Depth Normal Normal Respiratory Pattern Regular Blood Pressure 191/88 H Blood Pressure [Left Arm] 117/96 145/73 H Blood Pressure Mean 122 Blood Pressure Mean [Left Arm] 103 97 Blood Pressure Position Sitting Pulse Oximetry 98 96 97 Oxygen Delivery Method Room Air Room Air Sepsis Recent Fever Within 48 Hours No Sepsis New/Unexplained Change in Mental Status No Sepsis Action Taken by Nursing No Action Required GENERAL: alert, uncomfortable appearing, well nourished, mild distress, non- toxic EYE EXAM: normal conjunctiva, PERRL and EOM's grossly intact OROPHARYNX: no exudate, no erythema, lips, buccal mucosa, and tongue normal and mucous membranes are moist NECK: supple, no nuchal rigidity, no adenopathy, non-tender LUNGS: Clear to auscultation. Normal chest wall mechanics, no w/r/r HEART: no murmurs, S1 normal and S2 normal ABDOMEN: abdomen soft, generalized discomfort with palpation, normo-active bowel sounds, no masses, no rebound or guarding. Dull to percussion. BACK: Back is symmetrical on inspection and there is no deformity, no midline tenderness, no CVA tenderness. SKIN: no rashes and no bruising UPPER EXTREMITIES: upper extremities are grossly normal. FROM, nml pulses b/l. LOWER EXTREMITIES: No pitting edema. FROM, nml pulses b/l. NEURO EXAM: Normal sensorium, cranial nerves II-XII grossly intact, normal speech, no gross weakness of arms, no gross weakness of legs. Gross sensation intact. Course Course 0350: Patient updated on results. She states nausea improved but she is still having pain, now more localized to the right upper quadrant. 0402: Pt seen by Emigdio House PA-C with gen surg. Requested US. Administered Medications Potassium Chloride 10 meq/ (Sodium Chloride) 1,005 mls @ 80 mls/hr IV .[id number] ANDRES Stop: 11/13/21 06:29 Last Admin: 10/14/21 07:55 Dose: 80 mls/hr Documented By: JAIMEE Morphine Sulfate (Morphine Sulfate 2 Mg/Ml Carp) 2 mg IV Q3H PRN PRN Reason: Pain Stop: 10/28/21 05:20 Last Admin: 10/14/21 11:09 Dose: 2 mg Documented By: Admin: 10/14/21 06:45 Dose: 2 mg Documented By: ASW Discontinued Medications Bupivacaine HCl (Bupivacaine 0.5 % 5 Mg/1 Ml Mpf 30ml Vial) Confirm Administered Dose 30 ml .ROUTE .STK-MED ONE Stop: 10/14/21 12:06 Last Admin: 10/14/21 12:56 Dose: 24 ml Documented By: MDD Epinephrine HCl (Epinephrine Inj 1 Mg/Ml Amp) Confirm Administered Dose 1 mg .ROUTE .STK-MED ONE Stop: 10/14/21 12:06 Last Admin: 10/14/21 12:51 Dose: 0.15 mg Documented By: MDD Fentanyl Citrate (Fentanyl Citrate 100 Mcg/2 Ml Vial) 25 mcg IV Q5M PRN PRN Reason: PACU Use Only-Pain Stop: 10/14/21 20:01 Last Admin: 10/14/21 14:12 Dose: 25 mcg Documented By: Admin: 10/14/21 13:45 Dose: 25 mcg Documented By: Admin: 10/14/21 13:33 Dose: 25 mcg Documented By: Admin: 10/14/21 13:18 Dose: 25 mcg Documented By: SER Sodium Chloride (Nss 1000ml) 1,000 mls @ 250 mls/hr IV .Q4H ANDRES Stop: 11/13/21 00:14 Last Admin: 10/14/21 08:36 Dose: Not Given Documented By: Infusion: 10/14/21 07:56 Dose: 0 mls/hr Documented By: Admin: 10/14/21 05:24 Dose: 250 mls/hr Documented By: Infusion: 10/14/21 04:29 Dose: 0 mls/hr Documented By: Admin: 10/14/21 00:36 Dose: 250 mls/hr Documented By: MED Acetaminophen (Ofirmev) 1,000 mg in 100 mls @ 400 mls/hr IV NOW STA Stop: 10/14/21 00:15 Last Infusion: 10/14/21 02:00 Dose: 0 mls/hr Documented By: edge banding off bearer: 10/14/21 00:31 Dose: 400 mls/hr Documented By: MED Cefoxitin Sodium (Mefoxin) 2,000 mg in 60 mls @ 100 mls/hr IV NOW STA Stop: 10/14/21 05:56 Last Infusion: 10/14/21 07:13 Dose: 0 mls/hr Documented By: Admin: 10/14/21 06:37 Dose: 100 mls/hr Documented By: AGUSTIN Cefoxitin Sodium 2,000 mg/ (Dextrose) 60 mls @ 100 mls/hr IV Q6H ANDRES Stop: 10/24/21 11:59 Last Admin: 10/14/21 15:45 Dose: Not Given Documented By: MES Promethazine HCl 6.25 mg/ (Sodium Chloride) 50.25 mls @ 204 mls/hr IV ONCE PRN PRN Reason: PACU Use Only-Nausea/Vomiting Stop: 10/14/21 20:02 Last Infusion: 10/14/21 15:44 Dose: 0 mls/hr Documented By: Admin: 10/14/21 14:45 Dose: 204 mls/hr Documented By: SER Cefoxitin Sodium 2,000 mg/ (Dextrose) 60 mls @ 100 mls/hr IV NOW STA Stop: 10/14/21 13:16 Last Admin: 10/14/21 15:44 Dose: Not Given Documented By: MES Cefoxitin Sodium 2,000 mg/ (Dextrose) 60 mls @ 100 mls/hr IV ONCE ONE Stop: 10/14/21 13:29 Last Infusion: 10/14/21 15:44 Dose: 0 mls/hr Documented By: Admin: 10/14/21 12:30 Dose: 100 mls/hr Documented By: [id number] Ioversol (Optiray 320 100ml) 100 ml IV ONCE ONE Stop: 10/14/21 03:07 Last Admin: 10/14/21 03:07 Dose: 93 ml Documented By: ADELA Morphine Sulfate (Morphine Sulfate 2 Mg/Ml Carp) 2 mg IV NOW STA Stop: 10/14/21 00:02 Last Admin: 10/14/21 00:23 Dose: 2 mg Documented By: LULA Ondansetron HCl (Ondansetron Inj 2 Mg/Ml 2 Ml Vial) 4 mg IV NOW STA Stop: 10/14/21 00:02 Last Admin: 10/14/21 00:24 Dose: 4 mg Documented By: LULA Ondansetron HCl (Ondansetron Inj 2 Mg/Ml 2 Ml Vial) 4 mg IV ONCE PRN PRN Reason: PACU Use Only-Nausea/Vomiting Stop: 10/14/21 20:01 Last Admin: 10/14/21 13:17 Dose: 4 mg Documented By: SER Medical Decision Making Differential Diagnosis Differential diagnoses includes but is not limited to gastritis, peptic ulcer disease, GERD, gallbladder disease, pancreatitis, small bowel obstruction, acute coronary syndrome, pericarditis, ischemic bowel, irritable bowel disease, irritable bowel syndrome, appendicitis, diverticulitis, malignancy, hernia, urinary tract infection, torsion, [/ectopic (if female)], perforation, trauma, infectious. Medical Records Attestation: I reviewed the patient's medical records. Home Medications Current Medication List: was personally reviewed by me Laboratory Data Attestation: I reviewed the patient's lab results. Result diagrams: 10/14/21 00:10 10/14/21 00:10 Lab Results 10/14/21 10/14/21 10/14/21 Range/Units 00:10 00:10 00:50 WBC 9.80 (4.8-10.8) K/ul RBC 4.44 (3.93-5.22) M/uL Hgb 13.9 (12.0-16.0) g/dl Hct 41.4 (34.1-44.9) % MCV 93.2 (80.0-100.0) fL MCH 31.3 (25.0-34.0) pg MCHC 33.6 (32.0-36.0) g/dL RDW Std Deviation 41.8 (36.4-46.3) fL RDW Coeff of Jana 12.2 (11.5-14.5) % Plt Count 271 (130-400) K/uL MPV 10.3 (9.4-12.3) fL Immature Gran % (Auto) 0.2 % Neut % (Auto) 72.0 % Lymph % (Auto) 19.2 % [place] % (Auto) 7.2 % Eos % (Auto) 0.8 % Baso % (Auto) 0.6 % Neut # (Auto) 7.05 H (1.4-6.5) K/uL Lymph # (Auto) 1.88 (1.2-3.4) K/uL [place] # (Auto) 0.71 (0.24-0.82) K/uL Eos # (Auto) 0.08 (0-0.50) K/uL Baso # (Auto) 0.06 (0-0.2) K/uL Immature Gran # (Auto) 0.02 (0.00-0.02) K/uL Sodium 140 (136-145) mmol/L Potassium 3.3 L (3.5-5.1) mmol/L Chloride 102 (98-107) mmol/L Carbon Dioxide 29 (21-32) mmol/L Anion Gap 9 (3-11) BUN 18 (6-23) mg/dl Creatinine 0.71 (0.6-1.2) mg/dl Est Cr Clr Drug Dosing 66.5 ml/min Est GFR ( Amer) 102.2 ml/min Est GFR (Non-Af Amer) 88.1 ml/min BUN/Creatinine Ratio 25.4 H (10-20) Glucose 107 H (70-99(Fasting)) mg/dl Calcium 10.2 H (8.5-10.1) mg/dl Magnesium 2.3 (1.7-2.4) mg/dl Total Bilirubin 0.7 (0.2-1.0) mg/dl AST 78 H (13-39) U/L ALT 41 (7-52) U/L Alkaline Phosphatase 93 (34-104) U/L Troponin I High Sens 4.8 (0-14) pg/ml Total Protein 8.1 (6.0-8.3) gm/dl Albumin 4.9 (3.4-5.0) gm/dl Globulin 3.2 (2.5-4.0) gm/dl Albumin/Globulin Ratio 1.5 (0.9-2) Lipase 36 (11-82) U/L Urine Color Yellow Urine Appearance Turbid A (Clear) Urine pH 8.0 H (4.5-7.5) Ur Specific [place] 1.013 (1.000-1.030) Urine Protein Negative (Negative) Urine Glucose (UA) Negative (Negative) Urine Ketones Negative (Negative) Urine Blood Negative (Negative) Urine Nitrite Negative (Negative) Urine Bilirubin Negative (Negative) Urine Urobilinogen Negative (Negative) Ur Leukocyte Esterase Trace H (Negative) Urine WBC (Auto) 1-5 (0-5) /hpf Urine RBC (Auto) 0-4 (0-4) /hpf U Hyaline Cast (Auto) 1-5 (0-5) /lpf U Epithel Cells (Auto) 5-10 H (0-5) /lpf Urine Bacteria (Auto) Negative (Negative) SARS-CoV-2, RNA, NAAT (NEGATIVE) 10/14/21 Range/Units 05:06 WBC (4.8-10.8) K/ul RBC (3.93-5.22) M/uL Hgb (12.0-16.0) g/dl Hct (34.1-44.9) % MCV (80.0-100.0) fL MCH (25.0-34.0) pg MCHC (32.0-36.0) g/dL RDW Std Deviation (36.4-46.3) fL RDW Coeff of Jana (11.5-14.5) % Plt Count (130-400) K/uL MPV (9.4-12.3) fL Immature Gran % (Auto) % Neut % (Auto) % Lymph % (Auto) % [place] % (Auto) % Eos % (Auto) % Baso % (Auto) % Neut # (Auto) (1.4-6.5) K/uL Lymph # (Auto) (1.2-3.4) K/uL [place] # (Auto) (0.24-0.82) K/uL Eos # (Auto) (0-0.50) K/uL Baso # (Auto) (0-0.2) K/uL Immature Gran # (Auto) (0.00-0.02) K/uL Sodium (136-145) mmol/L Potassium (3.5-5.1) mmol/L Chloride (98-107) mmol/L Carbon Dioxide (21-32) mmol/L Anion Gap (3-11) BUN (6-23) mg/dl Creatinine (0.6-1.2) mg/dl Est Cr Clr Drug Dosing ml/min Est GFR ( Amer) ml/min Est GFR (Non-Af Amer) ml/min BUN/Creatinine Ratio (10-20) Glucose (70-99(Fasting)) mg/dl Calcium (8.5-10.1) mg/dl Magnesium (1.7-2.4) mg/dl Total Bilirubin (0.2-1.0) mg/dl AST (13-39) U/L ALT (7-52) U/L Alkaline Phosphatase (34-104) U/L Troponin I High Sens (0-14) pg/ml Total Protein (6.0-8.3) gm/dl Albumin (3.4-5.0) gm/dl Globulin (2.5-4.0) gm/dl Albumin/Globulin Ratio (0.9-2) Lipase (11-82) U/L Urine Color Urine Appearance (Clear) Urine pH (4.5-7.5) Ur Specific [place] (1.000-1.030) Urine Protein (Negative) Urine Glucose (UA) (Negative) Urine Ketones (Negative) Urine Blood (Negative) Urine Nitrite (Negative) Urine Bilirubin (Negative) Urine Urobilinogen (Negative) Ur Leukocyte Esterase (Negative) Urine WBC (Auto) (0-5) /hpf Urine RBC (Auto) (0-4) /hpf U Hyaline Cast (Auto) (0-5) /lpf U Epithel Cells (Auto) (0-5) /lpf Urine Bacteria (Auto) (Negative) SARS-CoV-2, RNA, NAAT NEGATIVE (NEGATIVE) Imaging Data Radiologist's Impression: CT abdomen pelvis with contrast: Gallbladder is moderately distended with edematous wall thickening suspicious for cholecystitis. No obvious calcified stone noted. Intrahepatic biliary ductal dilatation is noted without common bile duct dilatation. No obvious choledocholithiasis is present. Radiologist: Sandip Genao MD Ultrasound gallbladder: Shadowing gravel like stones noted within the gallbladder. The gallbladder wall is thickened up to 6 mm and appears slightly edematous. Finding suspicious for cholecystitis in the correct clinical setting. Common bile duct measures 8 mm which may be slightly prominent for patient this age. Would recommend careful intraoperative evaluation if the patient comes to cholecystectomy or MRCP if not. The visualized pancreas is normal. Simple right renal cyst incidentally noted measuring up to 3.3 cm. Radiologist: Sandip Genao MD ECG Data Attestation: I personally reviewed and interpreted this ECG as follows: Indication: + abdominal pain Rate (beats per minute): 76 Rhythm: + normal sinus ECG Intervals/blocks: + Normal QRS and + Normal QT ECG [place]: + Normal ECG ST segments: + Normal ST segments MDM Narrative An order was placed for continuous cardiac monitoring. The monitor shows a rate of _62_ with _normal sinus__ rhythm. This is a 66-year-old female presents emergency department with abrupt onset of abdominal pain and nausea. Patient most concerned for possible bowel obstruction which she has had previously. IV fluids started, patient given medication for nausea and pain, labs sent, patient sent for CT imaging. CT suggestive of evolving biliary pathology. Only one of the patient's LFTs was elevated, no leukocytosis or fevers. Case discussed with general surgery, the physician scheduling assistant did come evaluate her at bedside. They requested ultrasound which was confirmatory for acute cholecystitis. General surgery admitted the patient for operative intervention. Patient was afebrile and hemodynamically stable throughout. Impression & Plan Abdominal pain, Acute cholecystitis, Nausea Discharge Plan Visit Data Chief Complaint: GI Assessment Stated Complaint: ABDOMINAL PAIN. POSS BOWEL OBSTRUCTION ED Provider: Lisseth Mcgee Discharge Problem: Abdominal pain, Acute cholecystitis, Nausea Patient Disposition: Home - Self-Care Discharge Instructions Interventions: ED Discharge Assessment Last Done: 10/14/21 09:59
[2021-10-14 00:53] LABS: Troponin I High Sensitivity 4.8 pg/ml (0-14)
[2021-10-14 01:08] LABS: Albumin Globulin Ratio 1.5 (0.9-2); Albumin Level 4.9 gm/dl (3.4-5.0); BUN Creatinine Ratio 25.4 (10-20); Bilirubin,Total 0.7 mg/dl (0.2-1.0); Calcium 10.2 mg/dl (8.5-10.1); Creatinine Clr Calc Pharmacy 66.5 ml/min; Est GFR (African American) 102.2 ml/min; Est GFR (Non-African American) 88.1 ml/min; Globulin 3.2 gm/dl (2.5-4.0); Magnesium 2.3 mg/dl (1.7-2.4); Potassium 3.3 mmol/L (3.5-5.1); Total Protein 8.1 gm/dl (6.0-8.3)
[2021-10-14 01:33] LABS: Appearance Urine Turbid (Clear); Bacteria Urine Automated Negative (Negative); Bilirubin Urine Negative (Negative); Blood Urine Negative (Negative); Color Urine Yellow; Glucose Urine UA Negative (Negative); Ketones Urine Negative (Negative); Leukocyte Esterase Urine Trace (Negative); Nitrite Urine Negative (Negative); Protein Urine Negative (Negative); RBC Urine Automated 0-4 /hpf (0-4); Specific Gravity Urine 1.013 (1.000-1.030); Urobilinogen Urine Negative (Negative)
[2021-10-14] MEDS ORDERED: OPTIRAY 320 100ml IV ONE (03:06)
--- NOTE | 2021-10-14 04:13 | Surgery Consultation ---
Date of Consultation October 14, 2021 Assessment & Plan (1) Abdominal pain: Based on patient's clinical presentation as well as imaging we have thus far it appears she may be suffering from cholecystitis. It is nowhere the mention however that no obvious gallstones are seen on her CT scan. I discussed the findings with the patient, however she wishes to pursue an abdominal ultrasound to further delineate if any biliary pathology is present. I discussed with the treating emergency room physician and we have therefore ordered a gallbladder ultrasound. We will follow for the results of this with additional recommendations to follow. Following my initial visit with the patient we obtained a gallbladder ultrasound as noted above. I did discuss with the technologist performing the study who noted that the gallbladder ultrasound appeared to have dilated bile ducts with no obvious choledocholithiasis. Multiple gallstones and sludge were noted. The patient was noted to have pericholecystic fluid as well as a thickened gallbladder wall with a measurement of approximately 0.6 mm. Based on the patient's clinical presentation and imaging available I suspect the patient's presenting symptomatology is due to Salome cystitis and we will proceed as follows: Admit the patient to the hospital Implement n.p.o. status Provide IV fluid for hydration with supplemental potassium included in the IV fluids Provide analgesics Provide antiemetics We will administer antibiotics. I have ordered cefoxitin. I have discussed with the patient the numerous allergies she has listed. She notes that she is allergic to Cipro as well as sulfa. She specifically stated to me that she can take penicillin derivatives. COVID test has been ordered which is pending and we will follow for the results of this We will check a preoperative EKG as well as her preoperative chest x-ray I have tentatively placed the patient on Dr. Allison's schedule for laparoscopic, possible open cholecystectomy. I have outlined the expected postoperative course with the patient and she is willing to proceed. Additional recommendations will be made based on Dr. Allison's review of this case, operative findings, and her postoperative recovery. Will use SCDs for DVT prevention, no chemical means due to planned surgery Should be a level 1 full code as above. pt seen. likely cholecystitis. discussed options/risks ( bleeding/infection/bile duct leaks or injury, injury to other organs, dvt/pe/mi/cva etc....). questions answered. will proceed today with sara strauss. History of Present Illness Reason for Consultation: Abdominal pain, concern for cholecystitis History of Present Illness This is a 66-year-old female who presented to [facility] emergency department secondary to abdominal pain. The patient notes that the pain is located in the right upper quadrant of her abdomen without radiation. She denies any palliative or provocative factors. She notes that the pain began shortly after her evening meal on 10/13/2021. She had nausea without vomiting. She denies any fevers, shakes, or chills. Patient has had numerous abdominal surgeries including a on 2 occasions as well as a hysterectomy. She is also undergone a left pyeloplasty. She does have a history of a small bowel obstruction in the past. Review of records show that this occurred in October 2019 and was treated successfully in a conservative management. This evening in the emergency department the patient had labs and imaging which independent reviewed. CT scan of her abdomen showed that she had a moderately distended gallbladder with an edematous wall which was suspicious for cholecystitis. No obvious gallstones were noted and there was some intrahepatic biliary ductal dilatation without common bile duct dilated dilatation. There is no obvious choledocholithiasis. Patient did have labs including a CBC her white blood cell count was normal. Her hemoglobin, hematocrit, and platelet count were noted to be normal. Chemistry profile showed her sodium was 140 with a potassium of 3.3. BUN and creatinine were both normal. Patient's magnesium was noted to be normal. Her LFTs were unremarkable except for slight elevation of her AST which was 78. Her total bilirubin, ALT, alkaline phosphatase, and lipase were normal. Urinalysis did show turbid urine with trace leukocyte Estrace but was otherwise unremarkable for infection. The patient does note that she has had abdominal ultrasounds in the past and has never been told she had gallstones. Review of her records show that her most recent gallbladder ultrasound available for review was in 2018 on August 17. This did not show any evidence of gallstones or biliary ductal dilatation. At the time of my interview the patient was resting comfortably in bed and she was in no distress. She did receive 1000 mg of intravenous Tylenol as well as 2 mg of IV morphine. Allergies Allergy/AdvReac Type Severity Reaction Status Date / Time Sulfa (Sulfonamide Allergy Intermediate Hives Verified 10/14/21 00:11 Antibiotics) cat dander Allergy Mild ASTHMA Verified 10/14/21 00:11 diphenhydramine Allergy Mild RASH Verified 10/14/21 00:11 monosodium glutamate Allergy Mild RAPID Verified 10/14/21 00:11 HEART RATE amoxicillin [From Augmentin] Allergy Unknown Verified 10/14/21 00:11 ciprofloxacin [From Cipro] Allergy Unknown Verified 10/14/21 00:11 clavulanic acid Allergy Unknown Verified 10/14/21 00:11 [From Augmentin] doxycycline Allergy Unknown Verified 10/14/21 00:11 Home Medications Medication Instructions Recorded Confirmed Type cetirizine 10 mg tablet 10 mg PO DAILY PRN allergy symptoms 02/01/19 10/14/21 History lorazepam 1 mg tablet (Ativan) 1 mg PO TID PRN Anxiety 02/23/19 10/14/21 History promethazine 25 mg tablet 25 mg PO TID PRN nausea and 12/04/20 10/14/21 Rx vomiting #20 tabs levalbuterol tartrate 45 2 inh inhalation Q4H PRN shortness 01/26/21 10/14/21 Rx mcg/actuation aerosol inhaler of breath or wheezing #15 grams multivitamin 1 tab PO DAILY 06/14/21 10/14/21 History hydrocortisone acetate 25 mg 25 mg [place] DAILY PRN hemorrhoids #12 07/12/21 10/14/21 Rx rectal suppository (Anusol-HC) ea nitrofurantoin macrocrystal 100 mg 100 mg PO BID PRN urinary symptoms 07/12/21 10/14/21 Rx capsule #30 caps zolpidem 10 mg tablet 10 mg PO HS 10/14/21 10/14/21 History Patient History Medical History Acid reflux Actinic keratosis Angioma of skin Arthropod bite Asthma Chest tightness Eustachian tube dysfunction H/O vulvovaginitis History of basal cell carcinoma SBO (small bowel obstruction) Seborrheic keratosis Skin tag Surgical History H/O Spinal surgery C6-C7 SPINAL FUSION - HAS ALMOST COMPLETE ROM OF NECK H/O: section X2 History of anesthesia reaction HISTORY OF ASPIRATION WITH COLONOSCOPY, BUT ASSUMED IT WAS DUE TO THE PREP. NO ISSUES WITH THE LAST COLONOSCOPY, THEY SWITCHED THE PREP. DONE AT DR. SEWELL'S OFFICE. History of esophagogastroduodenoscopy (EGD) History of pyloroplasty August 2019 History of total abdominal hysterectomy PARTIAL S/P colonoscopy LAST 2015 S/P Mohs surgery for basal cell carcinoma FOREHEAD Family History Mother Breast cancer Colon cancer Hypertension Cancer Brother Prostate cancer Diabetes Colorectal cancer Hypertension Cancer Heart disease Sister Breast cancer Cancer Allergies Grandmother (Maternal) Breast cancer Father Myocardial infarction Uncle Diabetes Denies family history of Ovarian cancer Hearing loss No family history of adverse response to anesthesia No family history of bleeding disorder Stroke Asthma Social History Smoking Status: Never smoker Second Hand Exposure: No; Hx Alcohol Use: No Hx Substance Use: No Preferred Language: Peruvian Communication Ability: Effective Visual Impairment: No Limitations Maintenance Department Manager Required: No Beliefs That Will Affect Care: None marital status: Current Living Situation: Spouse current occupational status: employed 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 How many Children do You have: 2 Feels Safe at Home: Yes Childhood Exposure to Second-Hand Smoke: Yes Dental Care, Regularly: Yes Physical Activity Frequency: 3-4 Times per Week Seatbelt Use: always Sunscreen Use: Yes Assistive Devices: Glasses Review of Systems Constitutional: no fever and no chills Eyes: no eye pain Ear, Nose, Mouth, Throat: no ear pain Respiratory: no cough and no dyspnea Cardiovascular: no chest pain Gastrointestinal: + abdominal pain and + nausea; no vomiting Genitourinary: no dysuria Musculoskeletal: no back pain Integumentary: no rash Neurologic: no localized weakness Physical Exam Constitutional: WD/WN, vitals as above Eyes: + anicteric sclerae; no conjunctival abnormality ENMT: Ears: no hearing impairment and no external ear abnormality Mouth: no oropharynx abnormality Neck: trachea midline Respiratory: normal respiratory effort, lungs clear to auscultation Cardiovascular: Rate/Rhythm: regular rate and regular rhythm Gastrointestinal (Abdomen): Abdomen is soft and nondistended. There is no rebound tenderness or guarding. There is pain with very deep palpation in the epigastric area and also the right upper quadrant. Musculoskeletal: No calf tenderness Skin: no rashes Neurologic: moves all extremities Psychiatric: A+Ox3, euthymic affect Results & Data ([facility]) Vital Signs (Past 12 Hours) Vital Signs Temp Pulse Pulse Resp BP BP Pulse Ox 10/14/21 02:59 73 19 145/73 H 97 10/14/21 01:19 73 14 117/96 96 10/13/21 23:29 36.5 C 78 18 191/88 H 98 O2 Del Method 10/14/21 02:59 10/14/21 01:19 Room Air 10/13/21 23:29 Room Air PG Care Time/CCT Total # of Minutes Spent Total Time Spent with Patient: Total time spent is greater than 50% in coordination of care (as documented) at patient's floor/unit and/or counseling patient: Coding Level of Care Code 17785 Inpt Consult Level 5 Diagnoses Abdominal pain R10.9
[2021-10-14] MEDS ORDERED: ACETAMINOPHEN 1,000 MG/100 ML VIAL IV PRN (05:21)
[2021-10-14] MEDS ORDERED: cefOXitin 2,000 MG/60 ML BAG IV STA (05:21)
[2021-10-14] MEDS ORDERED: ONDANSETRON INJ 2 MG/ML 2 ML VIAL IV PRN ×2 (05:21→12:01)
[2021-10-14] MEDS ORDERED: POTASSIUM CHLORIDE 10 MEQ in SODIUM CHLORIDE 0.9% 1000ML 1,000 ML IV SCH (06:30)
--- NOTE | 2021-10-14 06:34 | XRay Report ---
XR chest 1V portable CLINICAL HISTORY: Preoperative evaluation. COMPARISON STUDY: Chest radiograph June 01, 2021. FINDINGS: Lung volumes are normal. There is a possible small left upper lobe airspace opacity. There is no pneumothorax or pleural effusion. Cardiac size is normal. Mediastinal contours are normal. Ther e is no evidence for pulmonary edema. Postoperative findings within the spine are incidentally noted. IMPRESSION: Possible small left upper lobe airspace opacity. This could reflect summation artifact. However, a small focus of pneumonia or less likely a pulmonary lesion could appear similar. Follow-up PA and shallow oblique radiographs are recommended. ACT 112: Negative or not required by law. Electronically signed by: Dimas Orozco M.D. 10/14/2021 6:32 AM
[2021-10-14] MEDS: MoRPHine SULFATE 2 MG/ML CARP IV PRN ×2 (06:45→11:09)
--- NOTE | 2021-10-14 06:47 | Ultrasound Report ---
ABDOMINAL ULTRASOUND, RIGHT UPPER QUADRANT HISTORY: Abnormal gallbladder on CT. COMPARISON: Abdominal ultrasound August 17, 2018. CT of the abdomen and pelvis performed earlier today. FINDINGS: Liver morphology is normal. No hepatic lesions are present. There are multiple gallstones w ithin the gallbladder. There is sludge within the gallbladder. Gallbladder is distended. Gallbladder wall is thickened, measuring 6 mm in thickness. Pericholecystic fluid is noted. No sonographic Wheeler sign was elicited. Top normal caliber common bile duct. Pancreatic body is normal. Head and tail are partially obscured. There is no right hydronephrosis. Several right renal cysts measure up to 3.3 cm . IMPRESSION: 1. Cholelithiasis, gallbladder distention, gallbladder wall thickening and pericholecystic fluid. Marciano pite lack of sonographic Wheeler sign, acute cholecystitis cannot be excluded, particularly given the findings on CT. 2. Top normal caliber common bile duct. This could be correlated with liver function tests. ACT 112: Negative or not required by law. Electronically signed by: Dimas Orozco M.D. 10/14/2021 6:44 AM
--- NOTE | 2021-10-14 07:16 | CT Scan Report ---
CT OF THE ABDOMEN AND PELVIS WITH CONTRAST CLINICAL HISTORY: Abdominal pain, nausea and vomiting. History small bowel obstruction. COMPARISON STUDY: CT of the abdomen and pelvis June 10, 2021. KUB June 14, 2021. Renal ultrasound June 06, 2021. TECHNIQUE: Following IV administration of 93 mL of Optiray, axial images of the abdomen and pelvis we re obtained from the lung bases to the proximal femurs. Images were reviewed in the axial, sagittal, and coronal planes. IV contrast was administered without complication. Automated exposure control wa s utilized for the study. A dose lowering technique was utilized adhering to the principles of ALARA . CT DOSE: 297.56 mGy.cm FINDINGS: Lung bases are unremarkable. No pneumatosis, free air or portal venous gas is present. No h epatic lesions are present. Gallbladder is distended. Gallbladder wall thickening is noted with trace pericholecystic fluid. Mild adjacent stranding is noted. Spleen, adrenal glands, and pancreas are un remarkable. Several right renal cysts are noted. Several subcentimeter bilateral renal lesions are to o small to characterize. There is no evidence for a bowel obstruction. Appendix is normal. No lymphad enopathy is present. Trace fluid within the pelvis is noted. No acute fracture or suspicious lesion i s identified within visualized skeletal structures. IMPRESSION: Distended gallbladder with gallbladder wall thickening, trace pericholecystic fluid and adjacent stranding. These findings suggest acute cholecystitis. ACT 112: Negative or not required by law. Electronically signed by: Dimas Orozco M.D. 10/14/2021 7:14 AM
[2021-10-14] MEDS ORDERED: LEVALBUTEROL TARTRATE 15 GM HFA.AER.AD INH PRN (08:30)
[2021-10-14] MEDS ORDERED: ROCURONIUM BROMIDE 10 MG/ML 5 ML VIAL IV ONE (11:45)
[2021-10-14] MEDS ORDERED: LIDOCAINE 2% MPF LOCAL 5 ML VIAL INFIL ONE (11:45)
[2021-10-14] MEDS ORDERED: PROPOFOL IV EMULSION 10 MG/ML 20 ML VIAL IV ONE (11:45)
[2021-10-14] MEDS ORDERED: DEXAMETHASONE SOD INJ 4 MG/ML VIAL ONE (11:45)
[2021-10-14] MEDS ORDERED: ONDANSETRON INJ 2 MG/ML 2 ML VIAL ONE (11:45)
[2021-10-14] MEDS ORDERED: fentaNYL citrate 100 MCG/2 ML VIAL ONE ×2 (11:46→13:04)
[2021-10-14] MEDS ORDERED: MIDAZOLAM HCL 1 MG/ML 2ML VIAL ONE (11:46)
--- NOTE | 2021-10-14 11:46 | Anesthesiology Consultation ---
Date of Service October 14, 2021 Assessment & Plan (1) Encounter for pre-operative examination: Chart Review Chart Review: Acceptable Risk for Surgery and Patient NOT seen in Pre Admission Testing Consults Requested none History Surgery Operation Date: 10/14/21 11:15 Proposed Procedures p Laparoscopic Cholecystectomy - Ken Allison DO Height/Weight Height: 5 ft 1 in Weight: 65.3 kg Allergies Allergy/AdvReac Type Severity Reaction Status Date / Time Sulfa (Sulfonamide Allergy Intermediate Hives Verified 10/14/21 00:11 Antibiotics) cat dander Allergy Mild ASTHMA Verified 10/14/21 00:11 diphenhydramine Allergy Mild RASH Verified 10/14/21 00:11 monosodium glutamate Allergy Mild RAPID Verified 10/14/21 00:11 HEART RATE amoxicillin [From Augmentin] Allergy Unknown Verified 10/14/21 00:11 ciprofloxacin [From Cipro] Allergy Unknown Verified 10/14/21 00:11 clavulanic acid Allergy Unknown Verified 10/14/21 00:11 [From Augmentin] doxycycline Allergy Unknown Verified 10/14/21 00:11 Medications Home Medications Medication Instructions Recorded Confirmed Last Taken cetirizine 10 mg tablet 10 mg PO DAILY PRN allergy symptoms 02/01/19 10/14/21 06/13/21 lorazepam 1 mg tablet (Ativan) 1 mg PO TID PRN Anxiety 02/23/19 10/14/21 10/13/21 promethazine 25 mg tablet 25 mg PO TID PRN nausea and 12/04/20 10/14/21 06/13/21 vomiting #20 tabs levalbuterol tartrate 45 2 inh inhalation Q4H PRN shortness 01/26/21 10/14/21 06/13/21 mcg/actuation aerosol inhaler of breath or wheezing #15 grams multivitamin 1 tab PO DAILY 06/14/21 10/14/21 06/14/21 hydrocortisone acetate 25 mg 25 mg DE DAILY PRN hemorrhoids #12 07/12/21 10/14/21 Unknown rectal suppository (Anusol-HC) ea nitrofurantoin macrocrystal 100 mg 100 mg PO BID PRN urinary symptoms 07/12/21 10/14/21 Unknown capsule #30 caps zolpidem 10 mg tablet 10 mg PO HS 10/14/21 10/14/21 Unknown Active Medications Generic Name Dose Route Start Last Admin Trade Name Freq PRN Reason Stop Dose Admin Potassium Chloride 10 meq/ 1,005 mls @ 80 mls/hr 10/14/21 06:30 10/14/21 07:55 Sodium Chloride IV 11/13/21 06:29 80 mls/hr .[id number] ANDRES Administration Morphine Sulfate 2 mg 10/14/21 05:21 10/14/21 11:09 Morphine Sulfate 2 Mg/Ml Carp IV 10/28/21 05:20 2 mg Q3H PRN Administration Pain NPO Date Last Intake of Fluids: 10/14/21 Time Last Intake of Fluids: 11:00 Last Intake of Fluids Comment: Sip water Date Last Intake of Solids: 10/13/21 Time Last Intake of Solids: 20:00 Past Medical History Medical History Acid reflux Actinic keratosis Angioma of skin Arthropod bite Asthma Chest tightness Eustachian tube dysfunction H/O vulvovaginitis History of basal cell carcinoma SBO (small bowel obstruction) Seborrheic keratosis Skin tag Exercise / Class Metabolic Activity II 4-5 Yardwork/Stairs/Walk up hill Past Family History Family History Mother Breast cancer Colon cancer Hypertension Cancer Brother Prostate cancer Diabetes Colorectal cancer Hypertension Cancer Heart disease Sister Breast cancer Cancer Allergies Grandmother (Maternal) Breast cancer Father Myocardial infarction Uncle Diabetes Denies family history of Ovarian cancer Hearing loss No family history of adverse response to anesthesia No family history of bleeding disorder Stroke Asthma Past Surgical History Surgical History H/O Spinal surgery C6-C7 SPINAL FUSION - HAS ALMOST COMPLETE ROM OF NECK H/O: section X2 History of anesthesia reaction HISTORY OF ASPIRATION WITH COLONOSCOPY, BUT ASSUMED IT WAS DUE TO THE PREP. NO ISSUES WITH THE LAST COLONOSCOPY, THEY SWITCHED THE PREP. DONE AT DR. SEWELL'S OFFICE. History of esophagogastroduodenoscopy (EGD) History of pyloroplasty August 2019 History of total abdominal hysterectomy PARTIAL S/P colonoscopy LAST 2015 S/P Mohs surgery for basal cell carcinoma FOREHEAD Past Anesthesia History No Hx of Anesthesia Complications and No Family Hx of Anesthesia Complications History of PONV No Hx of PONV and No Hx of Motion Sickness Social History Smoking Status: Never smoker Hx Alcohol Use: No Hx Substance Use: No Physical Exam Vital Signs Last Vital Signs Temp 37.2 C 10/14/21 11:23 Pulse 82 10/14/21 11:23 Resp 20 10/14/21 11:23 BP 159/80 H 10/14/21 11:23 Pulse Ox 96 10/14/21 11:23 O2 Del Method 10/14/21 11:23 Testing Laboratory Results 10/14/21 00:10 10/14/21 00:10 Urine Color Yellow 10/14/21 00:50 Urine Appearance Turbid (Clear) A 10/14/21 00:50 Urine pH 8.0 (4.5-7.5) H 10/14/21 00:50 Ur Specific Magness 1.013 (1.000-1.030) 10/14/21 00:50 Urine Protein Negative (Negative) 10/14/21 00:50 Urine Glucose (UA) Negative (Negative) 10/14/21 00:50 Urine Ketones Negative (Negative) 10/14/21 00:50 Urine Nitrite Negative (Negative) 10/14/21 00:50 Ur Leukocyte Esterase Trace (Negative) H 10/14/21 00:50 Urine WBC (Auto) 1-5 /hpf (0-5) 10/14/21 00:50 Urine RBC (Auto) 0-4 /hpf (0-4) 10/14/21 00:50 U Hyaline Cast (Auto) 1-5 /lpf (0-5) 10/14/21 00:50 U Epithel Cells (Auto) 5-10 /lpf (0-5) H 10/14/21 00:50 Urine Bacteria (Auto) Negative (Negative) 10/14/21 00:50 Electrocardiogram nsr. normal ecg
[2021-10-14] MEDS ORDERED: cefOXitin 2,000 MG in DEXTROSE 5% 50 ML IV SCH (12:00)
[2021-10-14] MEDS ORDERED: PROMETHAZINE HCL 6.25 MG in SODIUM CHLORIDE 0.9% 50 ML IV PRN (12:01)
[2021-10-14] MEDS ORDERED: ATROPINE SULFATE 0.1 MG/ML 10ML SYR IV PRN (12:01)
[2021-10-14] MEDS ORDERED: ePHEDrine sulfate 50 MG/ML AMP IV PRN (12:01)
[2021-10-14] MEDS ORDERED: BUPIVACAINE 0.5 % 5 MG/1 ML MPF 30ML VIAL ONE (12:05)
[2021-10-14] MEDS ORDERED: EPINEPHrine INJ 1 MG/ML AMP ONE (12:05)
[2021-10-14] MEDS ORDERED: ePHEDrine sulfate 50 MG/ML SYR ONE (12:40)
[2021-10-14] MEDS ORDERED: cefOXitin 2,000 MG in DEXTROSE 5% 50 ML IV STA (12:42)
[2021-10-14] MEDS ORDERED: cefOXitin 2,000 MG in DEXTROSE 5% 50 ML IV ONE (12:54)
--- NOTE | 2021-10-14 13:15 | Operative Report ---
PG Post Operative Report Pre & Post Diagnosis Operation Date: 10/14/21 11:15 Pre-Op Diagnosis: CHOLECYSTITIS Post-Op Diagnosis: CHOLECYSTITIS;adhesions I identified the patient and participated in the time-out.: Yes Procedure Operation Date: 10/14/21 11:15 Actual Procedures p Laparoscopic Cholecystectomy(Not Applicable) - Ken Allison DO Surgeon Ken Allison DO Healthcare Corporate Account Director logan Haile Estimated Blood Loss 10 Findings Consistent with Post-Op Diagnosis Specimens gallbladder Description of Procedure After informed consent was obtained the patient was taken to the operating room and placed in the supine position. After successful intubation the abdomen was sterilely prepped and draped in usual fashion. A periumbilical incision was made with an 11 blade scalpel and carried down through the soft tissue using electrocautery. The anterior rectus fascia was opened using electrocautery and 2 #0 Vicryl stay sutures were placed. The peritoneum was elevated with hemostats and incised under direct vision using Metzenbaum scissors. A finger sweep was performed and a 12 mm Santa trocar was placed. The abdomen was insufflated to 18 mmHg. The laparoscope was inserted and the abdomen was examined in 360. There were a fair amount of adhesions primarily in the lower half of the abdomen. Other than this, no gross abnormalities were identified. A subxiphoid 5 mm port and 2 right upper quadrant 5 mm ports were placed under direct vision. The patient was placed in a reverse Trendelenburg position and s lightly airplaned to the left. The gallbladder was grasped and elevated superiorly and laterally. A [place] dissector was used to take down adhesions around the neck of the gallbladder. The cystic duct was identified and skeletonized. It was clipped twice proximally and once distally and transected using a laparoscopic scissor. In similar fashion the cystic artery was identified and skeletonized clipped and divided. The gallbladder was removed from the gallbladder fossa with electrocautery. During this process a small hole was made in the gallbladder releasing some bile into the right upper quadrant. This was immediately suctioned and irrigated out. It was placed into an Endo Catch bag. Thorough irrigation was performed. At the end of the procedure there was adequate hemostasis and no evidence of any bile leaks. A final look around the abdomen showed no other abnormalities other than the previously stated adhesions. The gallbladder and trochars were all removed and the abdomen was desufflated. The fascia of the camera port was closed using 0 Vicryl in a [id number] fashion. All the wounds were irrigated and closed using 4-0 Monocryl. Marcaine was injected around them for postoperative analgesia and skin glue used as a dressing. The patient was awaken extubated and transferred to recovery in stable condition. My physician's assistant buyer was present throughout the entire case... helped with prepping the patient. With exposure for trocar placement, as well as retracted the gallbladder throughout the case and also assisted with wound closure and dressing placement. I attest to the content of the Intraoperative Record and any orders documented therein. Any exceptions are noted below.
[2021-10-14] MEDS: fentaNYL citrate 100 MCG/2 ML VIAL IV PRN ×4 (13:18→14:12)
--- NOTE | 2021-10-14 13:22 | Anesthesiology Progress Note ---
Date of Service October 14, 2021 Anesthesia Post Procedure Vital Signs Vital Signs: Temp Pulse Pulse Resp BP BP Pulse Ox 10/14/21 11:23 37.2 C 82 20 159/80 H 96 10/14/21 09:59 10/14/21 09:14 69 14 136/73 95 10/14/21 08:37 73 18 146/71 H 96 10/14/21 06:22 71 12 97 10/14/21 05:11 81 19 162/82 H 96 10/14/21 02:59 73 19 145/73 H 97 10/14/21 01:19 73 14 117/96 96 10/13/21 23:29 36.5 C 78 18 191/88 H 98 O2 Del Method 10/14/21 11:23 Room Air 10/14/21 09:59 Room Air 10/14/21 09:14 Room Air 10/14/21 08:37 Room Air 10/14/21 06:22 10/14/21 05:11 10/14/21 02:59 10/14/21 01:19 Room Air 10/13/21 23:29 Room Air Pain Intensity Abdomen: Pain Intensity: 10 Transfer of Care Handoff Completed per policy Notes Mental Status: alert / awake / arousable and participated in evaluation Patient Amnestic to Procedure: Yes Nausea / Vomiting: adequately controlled Pain: adequately controlled Airway Patency, RR, SpO2: stable & adequate BP & HR: stable & adequate Hydration State: stable & adequate Anesthetic Complications: no major complications apparent and Pt Satisfied with anesthetic care
[2021-10-14] MEDS ORDERED: PROMETHAZINE HCL INJ 25 MG/ML 1 ML VIAL ONE (14:48)
[2021-10-14] MEDS ORDERED: SODIUM CHLORIDE 0.9% 50 ML BAG ONE (14:48)
--- NOTE | 2021-10-14 17:37 | Electrocardiogram Report ---
Test Reason : Blood Pressure : / mmHG Vent. Rate : 089 BPM Atrial Rate : 089 BPM P-R Int : 154 ms QRS Dur : 076 ms QT Int : 390 ms P-R-T Axes : 081 025 056 degrees QTc Int : 474 ms Normal sinus rhythm Left atrial enlargement Borderline ECG When compared with ECG of 14-JUN-2021 12:27, No significant change was found Confirmed by Mesfin Enciso ([id number]) on 10/14/2021 5:36:45 PM Referred By: REFERRED SELF Confirmed By:Mesfin Enciso
--- NOTE | 2021-10-14 17:40 | Electrocardiogram Report ---
Test Reason : Blood Pressure : / mmHG Vent. Rate : 076 BPM Atrial Rate : 076 BPM P-R Int : 150 ms QRS Dur : 080 ms QT Int : 410 ms P-R-T Axes : 075 027 055 degrees QTc Int : 461 ms Normal sinus rhythm Normal ECG When compared with ECG of 14-OCT-2021 05:37, No significant change was found Confirmed by Mesfin Enciso ([id number]) on 10/14/2021 5:40:08 PM Referred By: REFERRED SELF Confirmed By:Mesfin Enciso
--- NOTE | 2021-10-15 13:53 | Discharge Summary ---
Date of Service October 15, 2021 Principal Diagnosis Acute cholecystitis Discharge Exam Constitutional WD/WN, vitals as above Gastrointestinal (Abdomen) Inspection/Auscultation: + abdominal surgical incision Percussion/Palpation: abdomen soft Discharge Data Allergies Allergy/AdvReac Type Severity Reaction Status Date / Time Sulfa (Sulfonamide Allergy Intermediate Hives Verified 10/14/21 00:11 Antibiotics) cat dander Allergy Mild ASTHMA Verified 10/14/21 00:11 diphenhydramine Allergy Mild RASH Verified 10/14/21 00:11 monosodium glutamate Allergy Mild RAPID Verified 10/14/21 00:11 HEART RATE amoxicillin [From Augmentin] Allergy Unknown Verified 10/14/21 00:11 ciprofloxacin [From Cipro] Allergy Unknown Verified 10/14/21 00:11 clavulanic acid Allergy Unknown Verified 10/14/21 00:11 [From Augmentin] doxycycline Allergy Unknown Verified 10/14/21 00:11 Consultations 10/14/21 05:19 ED Decision to Admit Stat Procedures Performed Operation Date: 10/14/21 11:15 Actual Procedures p Laparoscopic Cholecystectomy(Not Applicable) - Ken Allison DO Ordered Studies 10/14/21 00:01 CT abd pelvis IV con only Urgent 10/14/21 04:03 US abdomen limited Urgent Hospital Course (1) Abdominal pain: 66 y/o female presented to the ER with abdominal pain. White count was 9,000. CT and ultrasound were consistent with acute cholecystitis. She was admitted overnight and taken to the operating room the next day for laparoscopic cholecystectomy. She was returned to her room and was able to advance diet and tolerate oral analgesics. She was stable for discharge home later in the evening. Total Time Total Time Spent Total Time Spent (In Minutes): 15 Discharge Plan Discharge Items Patient Disposition: Home - Self-Care Reason For Visit: CHOLECYSTITIS Discharge Diagnosis: laparoscopic cholecystectomy Activity: As commented below Lifting: No more than 10 pounds Bathing Comment: ok to shower over skin glue Exercise/Sports: Wait until after follow-up appointment Driving/Machine Use: can drive when pain free Non-emergency contact: Surgeon Call non-emergency contact if: you have any medication questions, your pain is not controlled, you have a fever and your temperature is above 101.5 Follow-up/Referrals: Pro,Codey Bland MD [Primary Care Provider] - Allison,Ken D., DO [Surgeon] - (Please call to make an appt in 2 weeks) Diet: Regular Addtl Attending Provider Instructions: You should have repeat chest x-ray (2 views) in 4-6 weeks Pending Studies at Discharge: No Stand-Alone Forms: My [facility], Smoking Cessation Medications and DC Order Prescriptions: New oxycodone-acetaminophen [Percocet] 5-325 mg tablet 1 - 2 tab PO Q4H PRN (Reason: pain, initial therapy, max 6 daily) Qty: 15 0RF Continued promethazine 25 mg tablet 25 mg PO TID PRN (Reason: nausea and vomiting) Qty: 20 0RF levalbuterol tartrate 45 mcg/actuation HFA aerosol inhaler 2 inh INH Q4H PRN (Reason: shortness of breath or wheezing) Qty: 15 2RF cetirizine 10 mg tablet 10 mg PO DAILY PRN (Reason: allergy symptoms) lorazepam [Ativan] 1 mg tablet 1 mg PO TID PRN (Reason: Anxiety) hydrocortisone acetate [Anusol-HC] 25 mg suppository 25 mg ME DAILY PRN (Reason: hemorrhoids) Qty: 12 2RF nitrofurantoin macrocrystal 100 mg capsule 100 mg PO BID PRN (Reason: urinary symptoms) Qty: 30 3RF Rx Instructions: must administer with a meal/food multivitamin Tablet 1 tab PO DAILY zolpidem 10 mg tablet 10 mg PO HS Discharge Orders: Discharge Order (Routine); Ordered 10/14/21 Ordered By: Sree Haile Admission Data Admit Date/Time: 10/14/21 05:28 Attending Provider: Ken Allison Admit Provider: Ken Allison Primary Care Provider: Codey Keller Other Providers: Ken Allison Other Interventions: Discharge Summary Assessment (RN) Last Done: 10/14/21 18:11 Coding Level of Care Code D/C DAY MANAGEMENT <30 MINS Diagnoses Abdominal pain R10.9
== END 2021-10-14 18:00 | disposition home or self-care (01) | DRG 419 ==
LOC: ED 23:26 → EDINP 10-14 05:28